=== PATIENT | female | born 1960 | race African-American/Black ===

== ENCOUNTER 2016-09-26 18:14 | Emergency (ER) | payer BC, MEDICAID ==
[~2016-09-26] VITALS: Ht 160 cm; Wt 77.1 kg
[2016-09-26] MEDS ORDERED: IV NORMAL SALINE 1000ML BAG 1,000 ML IV SCH (18:44)
[2016-09-26] MEDS ORDERED: FAMOTIDINE 20 MG/2 ML VIAL IVP ONE (18:45)
[2016-09-26] MEDS ORDERED: FENTANYL PF 100 MCG/2 ML VIAL. IV PRN (18:45)
[2016-09-26] MEDS ORDERED: ONDANSETRON PF 4 MG/2 ML VIAL. IV ONE (18:45)
[2016-09-26 19:02] LABS: BASO # 0.1 x10^3/uL (0.0-0.2); BASO % 1 % (0-3); EOS % 3 % (0-3); HEMATOCRIT 38.7 % (36.0-47.0); HEMOGLOBIN 12.5 g/dL (12.0-15.5); LYMPH # 2.1 x10^3/uL (1.0-4.8); LYMPH % 32 % (24-48); MEAN CORPUSCULAR HEMOGLOBIN 29 pg (25-35); MEAN CORPUSCULAR HGB CONC 32 g/dL (31-37); MEAN CORPUSCULAR VOLUME 91 fL (79-100); MONO % 6 % (0-9); NEUT % 58 % (31-73); PLATELET COUNT 224 x10^3/uL (140-400); RED BLOOD COUNT 4.25 x10^6/uL (3.50-5.40); RED CELL DISTRIBUTION WIDTH 14.1 % (11.5-14.5); WHITE BLOOD COUNT 6.7 x10^3/uL (4.0-11.0)
[2016-09-26 19:22] LABS: CALCIUM 9.9 mg/dL (8.5-10.1); CREATININE 0.5 mg/dL (0.6-1.0); GFR 155.6; POTASSIUM 4.4 mmol/L (3.5-5.1)
[2016-09-26 19:27] LABS: ALBUMIN 3.8 g/dL (3.4-5.0); TOTAL BILIRUBIN 0.5 mg/dL (0.2-1.0); TOTAL PROTEIN 7.7 g/dL (6.4-8.2)
[2016-09-26 20:01] LABS: CKMB MASS < 0.5 ng/mL (0.0-3.6); CREATINE KINASE 59 U/L (26-192)
[2016-09-26 20:03] LABS: BILIRUBIN,URINE NEGATIVE (NEG); GLUCOSE,URINE NEGATIVE (NEG); NITRITE,URINE NEGATIVE (NEG); PH,URINE 5.5; PROTEIN,URINE NEGATIVE (NEG-TRACE)
[2016-09-26 20:22] LABS: BACTERIA,URINE MODERATE /HPF (0-FEW); RBC,URINE 0 /HPF (0-2); SQUAMOUS EPITHELIAL CELL,UR MOD /LPF
[2016-09-26] MEDS ORDERED: ONDA4TAB10 SL (20:39)
[2016-09-26] MEDS ORDERED: NITR100C62 PO (20:39)
[2016-09-26] MEDS ORDERED: FAMO-63 PO (20:39)
--- NOTE | 2016-09-26 20:40 | PHYS DOC ---
Past Medical History Past Medical History: Constipation, CVA, Hypertension, Hypothyroid, Seizure, Other Additional Past Medical Histor: PARKINSON'S Past Surgical History: No Surgical History Alcohol Use: None Drug Use: None Adult General Chief Complaint Chief Complaint: SHORTNESS OF BREATH HPI HPI Patient is a 55 year old female who presents with complaint of upper abdominal pain. Patient states that she has been having trouble with abdominal pain for the past 6 months. Patient states over the past months she has been noticing intermittent shortness of breath when she gets the abdominal pain. Patient states her symptoms worsened over the past few days and the patient decided to come to the emergency department for evaluation. Patient states that she just recently moved from [place] within the last 2 weeks. Patient does not have a primary care physician at this time. The patient states that she has had previous workups and [place] for her abdominal pain but states that they have not been able to find an obvious cause for her symptoms. Denies any associated fevers, nausea, vomiting and patient states that the pain is currently 10 out of 10 and describes the pain as sharp. Patient denies radiation of pain. Patient has not taken any medications to help with her symptoms. Review of Systems Review of Systems Constitutional: Denies fever or chills [] Eyes: Denies change in visual acuity, redness, or eye pain [] HENT: Denies nasal congestion or sore throat [] Respiratory: Shortness breath [] Cardiovascular: Denies chest pain or edema [] GI: Abdominal pain, denies nausea, vomiting, bloody stools or diarrhea [] : Denies dysuria or hematuria [] Musculoskeletal: Denies back pain or joint pain [] Integument: Denies rash or skin lesions [] Neurologic: Denies headache, focal weakness or sensory changes [] Current Medications Current Medications Current Medications Medications (Trade) Dose Ordered Sig/Shana Start Time Stop Time Status Last Admin Dose Admin Famotidine (Pepcid) 20 mg 1X ONCE 09/26/16 18:45 09/26/16 18:53 DC 09/26/16 19:10 20 MG Fentanyl Citrate 50 mcg 50 mcg PRN Q15MIN PRN 09/26/16 18:45 09/27/16 18:44 09/26/16 19:13 50 MCG Ondansetron HCl (Zofran) 4 mg 1X ONCE 09/26/16 18:45 09/26/16 18:53 DC 09/26/16 19:09 4 MG Sodium Chloride (Iv Sodium Chloride 0.9% 1000ml Bag) 1,000 ml @ 1,000 mls/hr Q1H 09/26/16 18:44 09/26/16 19:43 DC 09/26/16 19:09 1,000 MLS/HR Allergies Allergies Allergies Coded Allergies Type Severity Reaction Last Updated Verified No Known Drug Allergies 09/26/16 No Physical Exam Physical Exam Constitutional: Alert, afebrile, appears in no acute distress. [] HENT: Normocephalic, atraumatic, bilateral external ears normal, oropharynx moist, no oral exudates, nose normal. [] Eyes: PERRLA, EOMI, conjunctiva normal, no discharge. [] Neck: Normal range of motion, no tenderness, supple, no stridor. [] Cardiovascular:Heart rate regular rhythm, no murmur [] Lungs & Thorax: Bilateral breath sounds clear to auscultation [] Abdomen: Bowel sounds normal, soft, epigastric tenderness to palpation, no guarding or rebound tenderness, no masses, no pulsatile masses. [] Skin: Warm, dry, no erythema, no rash. [] Back: No tenderness, no CVA tenderness. [] Extremities: No tenderness, no cyanosis, no clubbing, ROM intact, no edema. [] Neurologic: Alert and oriented X 3, normal motor function, normal sensory function, no focal deficits noted. [] Current Patient Data Vital Signs Vital Signs Date Time Temp Pulse Resp B/P Pulse Ox O2 Delivery O2 Flow Rate FiO2 09/26/16 20:28 55 161/85 94 09/26/16 19:23 22 Room Air 09/26/16 18:24 97.5 97.5 Lab Values Laboratory Tests Test 09/26/16 18:20 09/26/16 19:45 White Blood Count 6.7x10^3/uL (4.0-11.0) Red Blood Count 4.25x10^6/uL (3.50-5.40) Hemoglobin 12.5g/dL (12.0-15.5) Hematocrit 38.7% (36.0-47.0) Mean Corpuscular Volume 91fL (79-100) Mean Corpuscular Hemoglobin 29pg (25-35) Mean Corpuscular Hemoglobin Concent 32g/dL (31-37) Red Cell Distribution Width 14.1% (11.5-14.5) Platelet Count 224x10^3/uL (140-400) Neutrophils (%) (Auto) 58% (31-73) Lymphocytes (%) (Auto) 32% (24-48) Monocytes (%) (Auto) 6% (0-9) Eosinophils (%) (Auto) 3% (0-3) Basophils (%) (Auto) 1% (0-3) Neutrophils # (Auto) 3.9x10^3uL (1.8-7.7) Lymphocytes # (Auto) 2.1x10^3/uL (1.0-4.8) Monocytes # (Auto) 0.4x10^3/uL (0.0-1.1) Eosinophils # (Auto) 0.2x10^3/uL (0.0-0.7) Basophils # (Auto) 0.1x10^3/uL (0.0-0.2) Sodium Level 144mmol/L (136-145) Potassium Level 4.4mmol/L (3.5-5.1) Chloride Level 104mmol/L (98-107) Carbon Dioxide Level 29mmol/L (21-32) Anion Gap 11 (6-14) Blood Urea Nitrogen 9mg/dL (7-20) Creatinine 0.5mg/dL (0.6-1.0) L Estimated GFR (Cockcroft-Gault) 155.6 BUN/Creatinine Ratio 18 (6-20) Glucose Level 88mg/dL (70-99) Calcium Level 9.9mg/dL (8.5-10.1) Total Bilirubin 0.5mg/dL (0.2-1.0) Aspartate Amino Transferase (AST) 14U/L (15-37) L Alanine Aminotransferase (ALT) 8U/L (14-59) L Alkaline Phosphatase 82U/L (46-116) Creatine Kinase 59U/L (26-192) Creatine Kinase MB (Mass) < 0.5ng/mL (0.0-3.6) Creatine Kinase MB Relative Index % (0-4) Troponin I Quantitative < 0.017ng/mL (0.000-0.055) Total Protein 7.7g/dL (6.4-8.2) Albumin 3.8g/dL (3.4-5.0) Albumin/Globulin Ratio 1.0 (1.0-1.7) Lipase 109U/L (73-393) Urine Color Yellow Urine Clarity Cloudy Urine pH 5.5 Urine Specific [place] 1.015 Urine Protein Negativemg/dL (NEG-TRACE) Urine Glucose (UA) Negativemg/dL (NEG) Urine Ketones (Stick) Tracemg/dL (NEG) Urine Blood Negative (NEG) Urine Nitrite Negative (NEG) Urine Bilirubin Negative (NEG) Urine Urobilinogen Dipstick 1.0mg/dL (0.2 mg/dL) Urine Leukocyte Esterase Small (NEG) Urine RBC 0/HPF (0-2) Urine WBC 1-4/HPF (0-4) Urine Squamous Epithelial Cells Mod/LPF Urine Amorphous Sediment Present/HPF Urine Bacteria Moderate/HPF (0-FEW) Urine Mucus Marked/LPF Laboratory Tests 09/26/16 18:20 Laboratory Tests 09/26/16 18:20 EKG EKG Interpreted by me: Heart rate 71, sinus rhythm, leftward axis, normal intervals , no acute ST/T-wave abnormalities present [] Radiology/Procedures Radiology/Procedures 3 view acute abdominal series interpreted by me: No pulmonary infiltrates or effusions, nonobstructive bowel gas pattern, no free air under the diaphragm [] Course & Med Decision Making Course & Med Decision Making Pertinent Labs and Imaging studies reviewed. (See chart for details) Patient was given IV fluids, Zofran, Pepcid, and fentanyl. On reevaluation, patient states that her symptoms have improved at this time. Patient's lab and imaging do not reveal any remarkable findings except for an incidental finding of urinary tract infection, and do not show any evidence of an acute surgical process. The patient likely will need outpatient GI follow-up for further evaluation and possible EGD, however I recommended that the patient first establish primary care referral to [facility]. Advise follow-up in one week. The patient will be treated as outpatient with Zofran and Pepcid as well as Macrobid for treatment of urinary tract infection. Advised return emergency department for any worsening symptoms. Patient was understanding and in agreement with treatment plan. Dragon Disclaimer Dragon Disclaimer This electronic medical record was generated, in whole or in part, using a voice recognition dictation system. Departure Departure Impression: Primary Impression: Abdominal pain Additional Impression: UTI (urinary tract infection) Disposition: 09 ADMITTED INPATIENT Condition: STABLE Referrals: NO PCP (PCP) Patient Instructions: Abdominal Pain (Nonspecific), Urinary Tract Infection Additional Instructions: Follow-up with your primary doctor in 1 week. Return to the emergency department for any worsening symptoms. Scripts Ondansetron (Zofran Odt)4 Mg Tab.rapdis1 Tab SL Q8HRS PRN NAUSEA/VOMITING #15 TAB Prov:WILLIAM PONCE MD 09/26/16 Famotidine (Pepcid)20 Mg Fubhty75 Mg PO BID #30 TAB Prov:WILLIAM PONCE MD 09/26/16 Nitrofurantoin Monohyd/M-Cryst (Macrobid 100 Mg Capsule)100 Mg Capsule1 Cap PO BID #14 CAP Prov:WILLIAM PONCE MD 09/26/16 Problem Qualifiers Primary Impression: Abdominal pain Abdominal location: epigastric Qualified Code: R10.13 - Epigastric pain Additional Impression: UTI (urinary tract infection) Urinary tract infection type: site unspecified Hematuria presence: without hematuria Qualified Code: N39.0 - Urinary tract infection, site not specified WILLIAM PONCE MD Sep 26, 2016 20:39
[2016-09-26 20:43] VITALS: BP 175/82
--- NOTE | 2016-09-27 06:35 | EKG ---
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
--- NOTE | 2016-09-27 08:02 | RAD ---
Acute abdomen series with chest, 09/26/2016: History: Shortness of breath, abdominal pain There is a moderate amount of gas in large and small bowel in a nonspecific pattern. No free air is seen in the abdomen. There is no evidence of organomegaly. Small lower pelvic calcifications are probably phleboliths. The heart size and pulmonary vascularity are within normal limits. No pulmonary infiltrates are seen. There is no evidence of pleural fluid. IMPRESSION: No acute abdominal abnormality is detected.
== END 2016-09-26 20:55 | disposition home or self-care (01) ==
LOC: ER 18:14
DX: R10.816 Epigastric abdominal tenderness (principal); N39.0 Urinary tract infection, site not specified; I10 Essential (primary) hypertension; E03.9 Hypothyroidism, unspecified; G20 Parkinson's disease; Z86.73 Personal history of transient ischemic attack (TIA), and cerebral infarction without residual deficits
CPT/HCPCS: 36415; 74022; 80053; 81001; 82553; 83690; 84484; 85027; 87086; 93005; 96361; 96374; 96375; 99285; J2405; J3010; J7030; S0028

== ENCOUNTER 2017-04-06 21:47 | Inpatient (IN) | payer BC, MEDICAID ==
[~2017-04-06] VITALS: Ht 165.1 cm; Wt 68.9 kg
[~2017-04-06 21:47] MED LIST: FAMO-63 PO; NITR100C62 PO; ONDA4TAB10 SL
[2017-04-06] MEDS: IV NORMAL SALINE 1000ML BAG 1,000 ML IV SCH ×2 (22:22→23:17)
[2017-04-06 22:29] LABS: BASO # 0.1 x10^3/uL (0.0-0.2); BASO % 1 % (0-3); EOS % 0 % (0-3); HEMATOCRIT 39.1 % (36.0-47.0); HEMOGLOBIN 12.6 g/dL (12.0-15.5); LYMPH # 1.2 x10^3/uL (1.0-4.8); LYMPH % 9 % (24-48); MEAN CORPUSCULAR HEMOGLOBIN 29 pg (25-35); MEAN CORPUSCULAR HGB CONC 32 g/dL (31-37); MEAN CORPUSCULAR VOLUME 90 fL (79-100); MONO % 13 % (0-9); NEUT % 77 % (31-73); PLATELET COUNT 232 x10^3/uL (140-400); RED BLOOD COUNT 4.34 x10^6/uL (3.50-5.40); RED CELL DISTRIBUTION WIDTH 13.7 % (11.5-14.5); WHITE BLOOD COUNT 14.4 x10^3/uL (4.0-11.0)
[2017-04-06] MEDS ORDERED: PIPERACILLIN/TAZOBACTAM 4.5 GM in IV NORMAL SALINE 100ML 100 ML IV ONE (22:30)
[2017-04-06 22:34] LABS: BILIRUBIN,URINE SMALL (NEG); GLUCOSE,URINE NEGATIVE (NEG); NITRITE,URINE NEGATIVE (NEG); PROTEIN,URINE >=300 mg/dL (NEG-TRACE)
[2017-04-06 22:37] LABS: INR 1.3 (0.8-1.1)
[2017-04-06 22:40] LABS: CALCIUM 9.8 mg/dL (8.5-10.1); CREATININE 0.9 mg/dL (0.6-1.0); GFR 78.7; POTASSIUM 4.7 mmol/L (3.5-5.1)
[2017-04-06 22:41] LABS: BACTERIA,URINE MANY /HPF (0-FEW); WBC,URINE 20-40 /HPF (0-4)
[2017-04-06 22:46] LABS: ALBUMIN 3.3 g/dL (3.4-5.0); ALBUMIN/GLOBULIN RATIO 0.8 (1.0-1.7); TOTAL BILIRUBIN 0.6 mg/dL (0.2-1.0); TOTAL PROTEIN 7.7 g/dL (6.4-8.2)
[2017-04-06] MEDS ORDERED: ACETAMINOPHEN 500 MG TABLET PO ONE (23:30)
--- NOTE | 2017-04-06 23:41 | PHYS DOC ---
Past Medical History Past Medical History: Constipation, CVA, Hypertension, Hypothyroid, Seizure, Other Additional Past Medical Histor: PARKINSON'S Past Surgical History: No Surgical History Alcohol Use: None Drug Use: None Adult General Chief Complaint Chief Complaint: ALTERED MENTAL STATUS HPI HPI Patient is a 56 year old female who presents with altered mental status. She is at [facility]. She has Parkinson and is incontinence. Nursing notes she has been less verbal for a few days. She is awake but non verbal. No trauma or fall. Review of Systems Review of Systems UNABLE TO OBTAIN -PATIENT IS NON VERBAL Current Medications Current Medications Current Medications Medications (Trade) Dose Ordered Sig/Shana Start Time Stop Time Status Last Admin Dose Admin Acetaminophen (Tylenol) 500 mg 1X ONCE 04/06/17 23:30 04/06/17 23:31 DC 04/06/17 23:40 500 MG Levofloxacin/ Dextrose 150 ml @ 100 mls/hr 1X ONCE 04/06/17 23:00 04/07/17 00:29 DC 04/06/17 23:41 100 MLS/HR Ondansetron HCl (Zofran) 4 mg PRN Q8HRS PRN 04/06/17 23:45 04/07/17 23:44 Piperacillin Sod/ Tazobactam Sod 4.5 gm/Sodium Chloride 100 ml @ 200 mls/hr 1X ONCE 04/06/17 22:30 04/06/17 22:59 DC 04/06/17 22:21 200 MLS/HR Sodium Chloride 1,000 ml @ 150 mls/hr 1X ONCE 04/07/17 00:00 04/07/17 06:39 04/07/17 00:00 150 MLS/HR Allergies Allergies Allergies Coded Allergies Type Severity Reaction Last Updated Verified No Known Drug Allergies 09/26/16 No Physical Exam Physical Exam Constitutional: Well developed, well nourished, no acute distress HENT: Normocephalic, atraumatic, bilateral external ears normal, oropharynx moist, no oral exudates, nose normal. Eyes: PERRLA, EOMI, conjunctiva normal, no discharge. Neck: Normal range of motion, no tenderness, supple, no stridor. Cardiovascular:Heart rate regular rhythm, no murmur Lungs & Thorax: Bilateral breath sounds clear to auscultation Abdomen: Bowel sounds normal, soft, no tenderness, no masses, no pulsatile masses. Skin: Warm, dry, no erythema, no rash. Extremities: No tenderness, no cyanosis, no clubbing, ROM intact, no edema. Neurologic: Alert, responds to voice; non verbal; moves all extremities. Current Patient Data Vital Signs Vital Signs Date Time Temp Pulse Resp B/P (MAP) Pulse Ox O2 Delivery O2 Flow Rate FiO2 04/07/17 00:00 90 32 128/70 (89) 100 Room Air 04/06/17 21:50 99.7 99.7 Lab Values Laboratory Tests Test 04/06/17 22:09 White Blood Count 14.4 x10^3/uL (4.0-11.0) H Red Blood Count 4.34 x10^6/uL (3.50-5.40) Hemoglobin 12.6 g/dL (12.0-15.5) Hematocrit 39.1 % (36.0-47.0) Mean Corpuscular Volume 90 fL (79-100) Mean Corpuscular Hemoglobin 29 pg (25-35) Mean Corpuscular Hemoglobin Concent 32 g/dL (31-37) Red Cell Distribution Width 13.7 % (11.5-14.5) Platelet Count 232 x10^3/uL (140-400) Neutrophils (%) (Auto) 77 % (31-73) H Lymphocytes (%) (Auto) 9 % (24-48) L Monocytes (%) (Auto) 13 % (0-9) H Eosinophils (%) (Auto) 0 % (0-3) Basophils (%) (Auto) 1 % (0-3) Neutrophils # (Auto) 11.1 x10^3uL (1.8-7.7) H Lymphocytes # (Auto) 1.2 x10^3/uL (1.0-4.8) Monocytes # (Auto) 1.9 x10^3/uL (0.0-1.1) H Eosinophils # (Auto) 0.0 x10^3/uL (0.0-0.7) Basophils # (Auto) 0.1 x10^3/uL (0.0-0.2) Prothrombin Time 15.0 SEC (11.7-14.0) H Prothrombin Time INR 1.3 (0.8-1.1) H PTT 35 SEC (24-38) Urine Collection Type Unknown Urine Color Carolyn Urine Clarity Cloudy Urine pH 8.0 Urine Specific [place] 1.015 Urine Protein >=300 mg/dL (NEG-TRACE) Urine Glucose (UA) Negative mg/dL (NEG) Urine Ketones (Stick) Trace mg/dL (NEG) Urine Blood Negative (NEG) Urine Nitrite Negative (NEG) Urine Bilirubin Small (NEG) Urine Urobilinogen Dipstick 1.0 mg/dL (0.2 mg/dL) Urine Leukocyte Esterase Moderate (NEG) Urine RBC 1-2 /HPF (0-2) Urine WBC 20-40 /HPF (0-4) Urine Squamous Epithelial Cells None /LPF Urine Amorphous Sediment Present /HPF Urine Bacteria Many /HPF (0-FEW) Urine Granular Casts Few /HPF Urine Mucus Slight /LPF Sodium Level 139 mmol/L (136-145) Potassium Level 4.7 mmol/L (3.5-5.1) Chloride Level 99 mmol/L (98-107) Carbon Dioxide Level 29 mmol/L (21-32) Anion Gap 11 (6-14) Blood Urea Nitrogen 44 mg/dL (7-20) H Creatinine 0.9 mg/dL (0.6-1.0) Estimated GFR (Cockcroft-Gault) 78.7 BUN/Creatinine Ratio 49 (6-20) H Glucose Level 130 mg/dL (70-99) H Lactic Acid Level 1.2 mmol/L (0.4-2.0) Calcium Level 9.8 mg/dL (8.5-10.1) Total Bilirubin 0.6 mg/dL (0.2-1.0) Aspartate Amino Transferase (AST) 14 U/L (15-37) L Alanine Aminotransferase (ALT) 12 U/L (14-59) L Alkaline Phosphatase 88 U/L (46-116) Troponin I Quantitative < 0.017 ng/mL (0.000-0.055) Total Protein 7.7 g/dL (6.4-8.2) Albumin 3.3 g/dL (3.4-5.0) L Albumin/Globulin Ratio 0.8 (1.0-1.7) L Lipase 72 U/L (73-393) L Laboratory Tests 04/06/17 22:09 Laboratory Tests 04/06/17 22:09 EKG EKG EKG interpreted by myself at 2235 PM: NSR, rate 95, nonsp ST changes. Radiology/Procedures Radiology/Procedures CXR: interpreted by myself at 2330 PM: no acute infiltrate; elev right hemidiaphragm Course & Med Decision Making Course & Med Decision Making Met patient upon arrival. concerned about sepsis. She is incontinent and has parkinsons. She is responsive but non verbal. Proceeded with work up; placed a foote and started IV fluid bolus. Foote placed with >1500 cc of urine output. Levaquin dosed. At 2330 PM she is speaking now and more alert. At 2335 PM: BP 125/80, P 90 at sat 98% post fluid resuscitation. Daughter at bedside and updated. Meets SIRS criteria of HR >104 (on arrival); WBC >12 and source of infection Urine. On [facility] record, followed by Dr Flash Richardson; called at 2340 PM for admission I spent approximately [30 minutes working and engaged directly in the patient care providing critical care evaluation this includes but not limited to time spent engaged in work directly related to the individual patients care. I spent time at the bedside, reviewing test results, discussing the case with staff, documenting the medical record and time spent with EMS discussing specific treatment issues when the patient presented and during his evaluation. This includes any discussion and updates with family members and/or patient. I have spoken with the patient and/or caregivers. I have explained the patient' s condition, diagnosis and treatment plan based on the information available to me at this time. I have answered the patient's and/or caregiver's questions and addressed any concerns. The patient and/or caregivers have as good an understanding of the patient's diagnosis, condition and treatment plan as can be expected at this point. The patient has been stabilized within the capability of the emergency department. The patient will be transported for further care and management or will be moved to an observation or inpatient service. I have communicated with the staff or medical practitioner taking over this patient's care. Dragon Disclaimer Dragon Disclaimer This electronic medical record was generated, in whole or in part, using a voice recognition dictation system. Departure Departure Impression: Primary Impression: UTI (urinary tract infection) Additional Impressions: SIRS (systemic inflammatory response syndrome) Urinary retention Disposition: ADMITTED INPATIENT Admitting Physician: Flash Richardson Condition: STABLE Referrals: NO PCP (PCP) Problem Qualifiers Primary Impression: UTI (urinary tract infection) Urinary tract infection type: acute cystitis Hematuria presence: without hematuria Qualified Codes: N30.00 - Acute cystitis without hematuria MOO LION MD Apr 06, 2017 23:40
[2017-04-06] MEDS ORDERED: ONDANSETRON PF 4 MG/2 ML VIAL. IV PRN (23:45)
[2017-04-07] VITALS (7 sets, daily range): BP systolic 95–111; BP diastolic 52–76
[2017-04-07] MEDS ORDERED: IV NORMAL SALINE 1000ML BAG 1,000 ML IV ONE
[2017-04-07] MEDS ORDERED: SULF1TAB24 PO (01:50)
[2017-04-07] MEDS ORDERED: LUBI8CAP4 PO (01:50)
[2017-04-07] MEDS ORDERED: ACET325T9 PO (01:50)
[2017-04-07] MEDS ORDERED: ASPI-630 PO (01:50)
[2017-04-07] MEDS ORDERED: AMLO5TAB2 PO (01:50)
[2017-04-07] MEDS ORDERED: ATRO10DR SL (01:50)
[2017-04-07] MEDS ORDERED: PROP10TA PO (02:00)
[2017-04-07] MEDS ORDERED: LEVO75TA5 PO (02:00)
[2017-04-07] MEDS ORDERED: NAPR-695 PO (02:00)
[2017-04-07] MEDS ORDERED: CARB1TAB2 PO (02:00)
[2017-04-07] MEDS ORDERED: PRAM0.255 PO (02:00)
[2017-04-07] MEDS ORDERED: DULO60CA6 PO (02:00)
[2017-04-07] MEDS ORDERED: MAG360OR24 PO (02:00)
[2017-04-07] MEDS ORDERED: TRAZ50TA15 PO (02:00)
[2017-04-07] MEDS ORDERED: FERR-26 PO (02:00)
[2017-04-07] MEDS ORDERED: METH5TAB4 PO (02:00)
[2017-04-07] MEDS ORDERED: LEVE500T6 PO (02:00)
[2017-04-07] MEDS ORDERED: LORA10TA68 PO (02:00)
[2017-04-07] MEDS ORDERED: ONDA4TAB11 PO (02:00)
[2017-04-07] MEDS ORDERED: FLUC200T4 PO (02:05)
--- NOTE | 2017-04-07 08:10 | RAD ---
Portable chest, 04/06/2017: History: Altered mental status Comparison is made to a study from 09/26/2016. The heart size and pulmonary vascularity are normal. No pulmonary infiltrates are seen. There is no evidence of pleural fluid. There is increased stool in the visible loops of colon in the upper abdomen. IMPRESSION: No acute cardiopulmonary abnormality is detected.
--- NOTE | 2017-04-07 08:27 | EKG ---
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
--- NOTE | 2017-04-07 08:43 | PDOC ---
GENERAL General: see dictated H&P. Problems: VITAL SIGNS Vital Signs: Vital Signs Date Time Temp Pulse Resp B/P (MAP) Pulse Ox O2 Delivery O2 Flow Rate FiO2 04/07/17 03:53 98.0 80 18 107/73 (84) 95 98.0 04/07/17 01:15 Room Air ALLERGIES Allergies: Allergies Coded Allergies Type Severity Reaction Last Updated Verified No Known Drug Allergies 09/26/16 No MEDS Medications: Current Medications Medications (Trade) Dose Ordered Sig/Shana Start Time Stop Time Status Last Admin Dose Admin Acetaminophen (Tylenol) 500 mg 1X ONCE 04/06/17 23:30 04/06/17 23:31 DC 04/06/17 23:40 500 MG Levofloxacin/ Dextrose 150 ml @ 100 mls/hr QHS 04/07/17 21:00 Ondansetron HCl (Zofran) 4 mg PRN Q8HRS PRN 04/06/17 23:45 04/07/17 23:44 Piperacillin Sod/ Tazobactam Sod 4.5 gm/Sodium Chloride 100 ml @ 200 mls/hr 1X ONCE 04/06/17 22:30 04/06/17 22:59 DC 04/06/17 22:21 200 MLS/HR Sodium Chloride 1,000 ml @ 150 mls/hr 1X ONCE 04/07/17 00:00 04/07/17 06:39 DC 04/07/17 00:00 150 MLS/HR LAB Lab: Laboratory Tests Test 04/06/17 22:09 White Blood Count 14.4 x10^3/uL (4.0-11.0) Red Blood Count 4.34 x10^6/uL (3.50-5.40) Hemoglobin 12.6 g/dL (12.0-15.5) Hematocrit 39.1 % (36.0-47.0) Mean Corpuscular Volume 90 fL (79-100) Mean Corpuscular Hemoglobin 29 pg (25-35) Mean Corpuscular Hemoglobin Concent 32 g/dL (31-37) Red Cell Distribution Width 13.7 % (11.5-14.5) Platelet Count 232 x10^3/uL (140-400) Neutrophils (%) (Auto) 77 % (31-73) Lymphocytes (%) (Auto) 9 % (24-48) Monocytes (%) (Auto) 13 % (0-9) Eosinophils (%) (Auto) 0 % (0-3) Basophils (%) (Auto) 1 % (0-3) Neutrophils # (Auto) 11.1 x10^3uL (1.8-7.7) Lymphocytes # (Auto) 1.2 x10^3/uL (1.0-4.8) Monocytes # (Auto) 1.9 x10^3/uL (0.0-1.1) Eosinophils # (Auto) 0.0 x10^3/uL (0.0-0.7) Basophils # (Auto) 0.1 x10^3/uL (0.0-0.2) Prothrombin Time 15.0 SEC (11.7-14.0) Prothromb Time International Ratio 1.3 (0.8-1.1) Activated Partial Thromboplast Time 35 SEC (24-38) Urine Collection Type Unknown Urine Color Carolyn Urine Clarity Cloudy Urine pH 8.0 Urine Specific [place] 1.015 Urine Protein >=300 mg/dL (NEG-TRACE) Urine Glucose (UA) Negative mg/dL (NEG) Urine Ketones (Stick) Trace mg/dL (NEG) Urine Blood Negative (NEG) Urine Nitrite Negative (NEG) Urine Bilirubin Small (NEG) Urine Urobilinogen Dipstick 1.0 mg/dL (0.2 mg/dL) Urine Leukocyte Esterase Moderate (NEG) Urine RBC 1-2 /HPF (0-2) Urine WBC 20-40 /HPF (0-4) Urine Squamous Epithelial Cells None /LPF Urine Amorphous Sediment Present /HPF Urine Bacteria Many /HPF (0-FEW) Urine Granular Casts Few /HPF Urine Mucus Slight /LPF Sodium Level 139 mmol/L (136-145) Potassium Level 4.7 mmol/L (3.5-5.1) Chloride Level 99 mmol/L (98-107) Carbon Dioxide Level 29 mmol/L (21-32) Anion Gap 11 (6-14) Blood Urea Nitrogen 44 mg/dL (7-20) Creatinine 0.9 mg/dL (0.6-1.0) Estimated GFR (Cockcroft-Gault) 78.7 BUN/Creatinine Ratio 49 (6-20) Glucose Level 130 mg/dL (70-99) Lactic Acid Level 1.2 mmol/L (0.4-2.0) Calcium Level 9.8 mg/dL (8.5-10.1) Total Bilirubin 0.6 mg/dL (0.2-1.0) Aspartate Amino Transf (AST/SGOT) 14 U/L (15-37) Alanine Aminotransferase (ALT/SGPT) 12 U/L (14-59) Alkaline Phosphatase 88 U/L (46-116) Troponin I Quantitative < 0.017 ng/mL (0.000-0.055) Total Protein 7.7 g/dL (6.4-8.2) Albumin 3.3 g/dL (3.4-5.0) Albumin/Globulin Ratio 0.8 (1.0-1.7) Lipase 72 U/L (73-393) PAUL ROCHA MD Apr 07, 2017 08:43
[2017-04-07] MEDS ORDERED: ACETAMINOPHEN 325 MG TABLET. PO PRN (08:45)
[2017-04-07] MEDS: amLODIPine BESYLATE 5 MG TABLET PO SCH (09:00)
[2017-04-07] MEDS ORDERED: MAG HYDROX/ALUMINUM HYD/SIMETH 30 ML ORAL.SUSP PO PRN (09:15)
[2017-04-07] MEDS ORDERED: ATROPINE 1% OPHTH SOLUTION 5ML BOTTLE. SL PRN (09:30)
[2017-04-07] MEDS ORDERED: ONDANSETRON ODT 4 MG TAB.RAPDIS. PO PRN (09:30)
[2017-04-07] MEDS: IV NORMAL SALINE 1000ML BAG 1,000 ML IV SCH (09:40)
[2017-04-07] MEDS: LUBIPROSTONE 8 MCG CAPSULE PO SCH (11:49)
[2017-04-07] MEDS: PRAMIPEXOLE 0.25 MG TABLET. PO SCH ×2 (11:49→21:00)
[2017-04-07] MEDS: LEVOTHYROXINE 75 MCG TABLET PO SCH (11:51)
[2017-04-07] MEDS: NAPROXEN 250 MG TABLET PO SCH ×2 (11:51→12:51)
[2017-04-07] MEDS: METHYLPHENIDATE HCL 5 MG TABLET PO SCH ×2 (11:51→21:00)
[2017-04-07] MEDS: CARBIDOPA/LEVODOPA 25/100MG TABLET PO SCH ×3 (11:52→21:00)
[2017-04-07] MEDS: SMZ/TMP 800/160MG TABLET. PO SCH ×2 (11:52→21:00)
[2017-04-07] MEDS: levETIRAcetam 500 MG TABLET PO SCH ×2 (11:52→21:00)
[2017-04-07] MEDS: CETIRIZINE HCL 10 MG TABLET. PO SCH (11:53)
[2017-04-07] MEDS: ASPIRIN CHEWABLE 81 MG TABLET. PO SCH (11:53)
[2017-04-07] MEDS: FERROUS SULFATE 325 MG TABLET. PO SCH ×2 (11:53→21:00)
[2017-04-07] MEDS: PROPRANOLOL 10 MG TABLET. PO SCH (11:55)
[2017-04-07] MEDS: DULoxetine HCL 30 MG CAPSULE.DR PO SCH (11:57)
[2017-04-07] MEDS: traZODone 50 MG TABLET. PO SCH (11:57)
--- NOTE | 2017-04-07 20:01 | RAD ---
KUB History: NG tube placement Comparison: September 26, 2016 Findings: Single supine AP portable view of the abdomen is submitted. Tip of enteric catheter is coiled in the cardiac portion of stomach, tip apparently in the stomach although directed back toward the gastroesophageal junction. Exam is insufficient for evaluation for free air. There is fairly prominent retained stool throughout the colon. Impression: 1. Tip of enteric catheter is in the cardiac portion of the stomach although directed back toward the gastroesophageal junction. 2. There is prominent retained stool throughout the colon. Electronically signed by: Flash Hicks MD (04/07/2017 7:57 PM) [facility]
[2017-04-07] MEDS: IV 1/2 NORMAL SALINE 1,000 ML IV SCH (22:50)
--- NOTE | 2017-04-07 23:12 | RAD ---
KUB History: Repositioned [place] Comparison: Exam earlier the same day Findings: Single supine AP view of the abdomen is submitted. Tip of the anterior catheter is now directed inferiorly likely in the body of stomach. There is retained stool throughout colon. Exam is insufficient for the evaluation for free air. Impression: 1. Tip of enteric catheter is now directed inferiorly, likely in the body of stomach. Electronically signed by: Flash Hicks MD (04/07/2017 11:09 PM) [facility]
[2017-04-08] VITALS (7 sets, daily range): BP systolic 71–99; BP diastolic 38–61
[2017-04-08] MEDS: SMZ/TMP 800/160MG TABLET. PO SCH ×2 (08:48→21:05)
[2017-04-08] MEDS: CARBIDOPA/LEVODOPA 25/100MG TABLET PO SCH ×3 (08:48→21:04)
[2017-04-08] MEDS: NAPROXEN 250 MG TABLET PO SCH ×2 (08:49→21:04)
[2017-04-08] MEDS: LEVOTHYROXINE 75 MCG TABLET PO SCH (08:49)
[2017-04-08] MEDS: DULoxetine HCL 30 MG CAPSULE.DR PO SCH (08:49)
[2017-04-08] MEDS: levETIRAcetam 500 MG TABLET PO SCH (08:49)
[2017-04-08] MEDS: PROPRANOLOL 10 MG TABLET. PO SCH ×2 (08:50→08:53)
[2017-04-08] MEDS: FERROUS SULFATE 325 MG TABLET. PO SCH (08:50)
[2017-04-08] MEDS: PRAMIPEXOLE 0.25 MG TABLET. PO SCH ×2 (08:51→21:05)
[2017-04-08] MEDS: amLODIPine BESYLATE 5 MG TABLET PO SCH ×2 (08:51→08:53)
[2017-04-08] MEDS: ASPIRIN CHEWABLE 81 MG TABLET. PO SCH (08:51)
[2017-04-08] MEDS: METHYLPHENIDATE HCL 5 MG TABLET PO SCH ×2 (08:51→21:04)
[2017-04-08] MEDS: traZODone 50 MG TABLET. PO SCH ×2 (08:51→21:05)
[2017-04-08] MEDS: CETIRIZINE HCL 10 MG TABLET. PO SCH (08:51)
--- NOTE | 2017-04-08 09:01 | PDOC ---
GENERAL General: vss and afebrile. much more awake and alert. exam stable. dysphagia yesterday with swallow eval and dobhoff in currently. will recheck swallow today with improvement overall from uti. otherwise same. Problems: VITAL SIGNS Vital Signs: Vital Signs Date Time Temp Pulse Resp B/P (MAP) Pulse Ox O2 Delivery O2 Flow Rate FiO2 04/08/17 08:53 87 93/51 04/08/17 07:15 98.2 16 100 Room Air 98.2 ALLERGIES Allergies: Allergies Coded Allergies Type Severity Reaction Last Updated Verified No Known Drug Allergies 09/26/16 No MEDS Medications: Current Medications Medications (Trade) Dose Ordered Sig/Shana Start Time Stop Time Status Last Admin Dose Admin Acetaminophen (Tylenol) 650 mg PRN Q4HRS PRN 04/07/17 08:45 Al Hydroxide/Mg Hydroxide (Mylanta Plus Xs) 10 ml PRN Q4HRS PRN 04/07/17 09:15 Amlodipine Besylate (Norvasc) 5 mg DAILY 04/07/17 09:00 Aspirin (Children'S Aspirin) 81 mg DAILY 04/07/17 09:00 04/08/17 08:51 81 MG Atropine Sulfate (Isopto Atropine) 1 drop PRN Q8HRS PRN 04/07/17 09:30 Carbidopa/Levodopa (Sinemet 25/100) 2 tab TID 04/07/17 09:00 04/08/17 08:48 2 TAB Cetirizine HCl (ZyrTEC) 10 mg DAILY 04/07/17 10:00 04/08/17 08:51 10 MG Duloxetine HCl (Cymbalta) 60 mg DAILY 04/07/17 10:00 04/08/17 08:49 60 MG Ferrous Sulfate (Feosol) 325 mg BID 04/07/17 09:00 04/08/17 08:50 325 MG Levetiracetam (Keppra) 1,000 mg BID 04/07/17 09:00 04/08/17 08:49 1,000 MG Levofloxacin/ Dextrose 150 ml @ 100 mls/hr QHS 04/07/17 21:00 04/07/17 22:51 100 MLS/HR Levothyroxine Sodium (Synthroid) 75 mcg DAILY 04/07/17 09:00 04/08/17 08:49 75 MCG Lubiprostone (Amitiza) 8 mcg Q3DAYS 04/07/17 09:00 04/07/17 11:49 8 MCG Methylphenidate HCl (Ritalin) 5 mg BID 04/07/17 09:00 04/08/17 08:51 5 MG Naproxen (Naprosyn) 375 mg BID 04/07/17 09:15 04/08/17 08:49 375 MG Ondansetron HCl (Zofran Odt) 4 mg PRN Q8HRS PRN 04/07/17 09:30 Ondansetron HCl (Zofran) 4 mg PRN Q8HRS PRN 04/06/17 23:45 04/07/17 23:44 DC Piperacillin Sod/ Tazobactam Sod 4.5 gm/Sodium Chloride 100 ml @ 200 mls/hr 1X ONCE 04/06/17 22:30 04/06/17 22:59 DC 04/06/17 22:21 200 MLS/HR Pramipexole Dihydrochloride (miraPEX) 0.125 mg BID 04/07/17 09:00 04/08/17 08:51 0.125 MG Propranolol HCl (Inderal) 10 mg DAILY 04/07/17 09:00 04/07/17 11:55 10 MG Sodium Chloride 1,000 ml @ 100 mls/hr Q10H 04/07/17 21:30 04/07/17 22:50 100 MLS/HR Trazodone HCl (Desyrel) 50 mg DAILY 04/07/17 09:00 04/07/17 11:57 50 MG Trimethoprim/ Sulfamethoxazole (Bactrim Ds) 1 tab BID 04/07/17 09:00 04/08/17 08:48 1 TAB PAUL ROCHA MD Apr 08, 2017 09:01
--- NOTE | 2017-04-08 09:08 | HP ---
ADMIT DATE: 04/07/2017 CHIEF COMPLAINT AND HISTORY CHIEF COMPLAINT AND HISTORY OF PRESENT ILLNESS: This 56-year-old black female was sent to the Emergency Room from [facility] because of altered mental status. The patient was known to have Parkinson's, prior CVA and incontinence. She had been much less verbal over the last few days and was sent to the Emergency Room. She was found to have UTI and admitted for the same. PAST MEDICAL HISTORY: Remarkable for hypertension, CVA, constipation, severe hypothyroid, Parkinson's. PAST SURGICAL HISTORY: She has no significant surgical history. SOCIAL HISTORY: Nonsmoker, nondrinker, does not use drugs. FAMILY HISTORY: Noncontributory. MEDICATIONS: Brought with the patient, listed on the computer and have been addressed. ALLERGIES: She has no known drug allergies. REVIEW OF SYSTEMS: Unobtainable as far as verbally as she will not speak to me, but will answer yes or no questions and with yes and no tells me that she is not in severe pain and feels better than she did at the time of admission. PHYSICAL EXAMINATION: GENERAL: She is a well-developed, well-nourished, somewhat obese black female, in no acute distress. HEAD, EYES, EARS, NOSE AND THROAT: Unremarkable. NECK: Supple, without adenopathy or thyromegaly. CHEST: Clear to auscultation and percussion. HEART: Regular rate and rhythm without S3, S4 or murmur. ABDOMEN: Soft, nontender, without hepatosplenomegaly or masses. EXTREMITIES: Without cyanosis, clubbing or edema. NEUROLOGIC: Remarkable for ____ being nonverbal, but moves all four extremities. She has no CVA tenderness present on exam. LABORATORY DATA: Initial laboratory is remarkable for leukocytosis with white count of 14,400. Her BUN is elevated at 44 ____ creatinine of 0.9 and blood sugar was 130. IMPRESSION: Urinary tract infection with decreased level of consciousness. She was also found to have urinary retention in the Emergency Room and a catheter was placed ____ listed above. PLAN: The patient is admitted. She will be continued on Levaquin. Urine is being cultured. Home medications will be restarted and the patient will be monitored, managed and treated appropriately. PAUL ROCHA MD DR: Leandro JOB#: [id number] / [id number]
[2017-04-08] MEDS: IV 1/2 NORMAL SALINE 1,000 ML IV SCH ×2 (13:04→21:09)
[2017-04-08] MEDS: FERROUS SULFATE ORAL 300 MG/5 ML SOLUTION. PO SCH (17:57)
[2017-04-09] VITALS (7 sets, daily range): BP systolic 81–102; BP diastolic 49–65
[2017-04-09] MEDS: IV 1/2 NORMAL SALINE 1,000 ML IV SCH ×3 (03:30→23:30)
--- NOTE | 2017-04-09 08:09 | PDOC ---
GENERAL General: vss and afebrile. awake and alert. dobhoff in place. chest clear, heart regular , and abdomen benign. gram negative rods without ID on urine culture. failed swallow test again yesterday. will see how does with same today with consideration of PEG tomorrow if fails. expect her to return to baseline with treatment of uti. Problems: VITAL SIGNS Vital Signs: Vital Signs Date Time Temp Pulse Resp B/P (MAP) Pulse Ox O2 Delivery O2 Flow Rate FiO2 04/09/17 07:00 98.7 80 18 97/61 (73) 99 Room Air 98.7 ALLERGIES Allergies: Allergies Coded Allergies Type Severity Reaction Last Updated Verified No Known Drug Allergies 09/26/16 No MEDS Medications: Current Medications Medications (Trade) Dose Ordered Sig/Shana Start Time Stop Time Status Last Admin Dose Admin Acetaminophen (Tylenol) 650 mg PRN Q4HRS PRN 04/07/17 08:45 04/08/17 17:57 650 MG Al Hydroxide/Mg Hydroxide (Mylanta Plus Xs) 10 ml PRN Q4HRS PRN 04/07/17 09:15 Amlodipine Besylate (Norvasc) 5 mg DAILY 04/07/17 09:00 Aspirin (Children'S Aspirin) 81 mg DAILY 04/07/17 09:00 04/08/17 08:51 81 MG Atropine Sulfate (Isopto Atropine) 1 drop PRN Q8HRS PRN 04/07/17 09:30 Carbidopa/Levodopa (Sinemet 25/100) 2 tab TID 04/07/17 09:00 04/08/17 21:04 2 TAB Cetirizine HCl (ZyrTEC) 10 mg DAILY 04/07/17 10:00 04/08/17 08:51 10 MG Duloxetine HCl (Cymbalta) 60 mg DAILY 04/07/17 10:00 04/08/17 08:49 60 MG Ferrous Sulfate 300 mg BIDWMEALS 04/08/17 17:00 04/08/17 17:57 300 MG Ferrous Sulfate (Feosol) 325 mg BID 04/07/17 09:00 04/08/17 09:48 DC 04/08/17 08:50 325 MG Levetiracetam (Keppra) 1,000 mg BID 04/08/17 21:00 04/08/17 21:04 1,000 MG Levofloxacin/ Dextrose 150 ml @ 100 mls/hr QHS 04/07/17 21:00 04/08/17 21:05 100 MLS/HR Levothyroxine Sodium (Synthroid) 75 mcg DAILY 04/07/17 09:00 04/08/17 08:49 75 MCG Lubiprostone (Amitiza) 8 mcg Q3DAYS 04/07/17 09:00 04/07/17 11:49 8 MCG Methylphenidate HCl (Ritalin) 5 mg BID 04/07/17 09:00 04/08/17 21:04 5 MG Naproxen (Naprosyn) 375 mg BID 04/07/17 09:15 04/08/17 21:04 375 MG Ondansetron HCl (Zofran Odt) 4 mg PRN Q8HRS PRN 04/07/17 09:30 Ondansetron HCl (Zofran) 4 mg PRN Q8HRS PRN 04/06/17 23:45 04/07/17 23:44 DC Piperacillin Sod/ Tazobactam Sod 4.5 gm/Sodium Chloride 100 ml @ 200 mls/hr 1X ONCE 04/06/17 22:30 04/06/17 22:59 DC 04/06/17 22:21 200 MLS/HR Pramipexole Dihydrochloride (miraPEX) 0.125 mg BID 04/07/17 09:00 04/08/17 21:05 0.125 MG Propranolol HCl (Inderal) 10 mg DAILY 04/07/17 09:00 04/07/17 11:55 10 MG Sodium Chloride 1,000 ml @ 100 mls/hr Q10H 04/07/17 21:30 04/09/17 03:30 100 MLS/HR Trazodone HCl (Desyrel) 50 mg QHS 04/08/17 21:00 04/08/17 21:05 50 MG Trimethoprim/ Sulfamethoxazole (Bactrim Ds) 1 tab BID 04/07/17 09:00 04/08/17 21:05 1 TAB PAUL ROCHA MD Apr 09, 2017 08:09
[2017-04-09] MEDS: amLODIPine BESYLATE 5 MG TABLET PO SCH (08:24)
[2017-04-09] MEDS: DULoxetine HCL 30 MG CAPSULE.DR PO SCH (08:26)
[2017-04-09] MEDS: SMZ/TMP 800/160MG TABLET. PO SCH ×2 (08:30→21:00)
[2017-04-09] MEDS: METHYLPHENIDATE HCL 5 MG TABLET PO SCH ×2 (08:30→21:00)
[2017-04-09] MEDS: CARBIDOPA/LEVODOPA 25/100MG TABLET PO SCH ×3 (08:30→20:59)
[2017-04-09] MEDS: CETIRIZINE HCL 10 MG TABLET. PO SCH (08:30)
[2017-04-09] MEDS: LEVOTHYROXINE 75 MCG TABLET PO SCH (08:31)
[2017-04-09] MEDS: PRAMIPEXOLE 0.25 MG TABLET. PO SCH ×2 (08:31→21:00)
[2017-04-09] MEDS: PROPRANOLOL 10 MG TABLET. PO SCH (08:31)
[2017-04-09] MEDS: ASPIRIN CHEWABLE 81 MG TABLET. PO SCH (08:32)
[2017-04-09] MEDS: FERROUS SULFATE ORAL 300 MG/5 ML SOLUTION. PO SCH ×2 (08:34→17:00)
[2017-04-09] MEDS: NAPROXEN 250 MG TABLET PO SCH ×2 (08:35→20:59)
[2017-04-09 09:32] LABS: BASO % 1 % (0-3); EOS % 3 % (0-3); HEMATOCRIT 29.4 % (36.0-47.0); HEMOGLOBIN 9.7 g/dL (12.0-15.5); LYMPH # 0.9 x10^3/uL (1.0-4.8); LYMPH % 12 % (24-48); MEAN CORPUSCULAR HEMOGLOBIN 29 pg (25-35); MEAN CORPUSCULAR HGB CONC 33 g/dL (31-37); MEAN CORPUSCULAR VOLUME 89 fL (79-100); MONO % 8 % (0-9); NEUT % 76 % (31-73); PLATELET COUNT 236 x10^3/uL (140-400); RED BLOOD COUNT 3.29 x10^6/uL (3.50-5.40); RED CELL DISTRIBUTION WIDTH 13.7 % (11.5-14.5); WHITE BLOOD COUNT 7.8 x10^3/uL (4.0-11.0)
[2017-04-09] MEDS ORDERED: BARIUM SULFATE 40% (APPLE) 148 GM PWD. PO ONE (13:15)
[2017-04-09] MEDS ORDERED: FLU VACC QS2017-18 (36MOS+)/PF 0.5 ML SYRINGE. VAX IM ONE (14:00)
--- NOTE | 2017-04-09 14:36 | RAD ---
Video dysphasia study, 04/09/2017: History: Dysphasia The swallowing mechanism was examined fluoroscopically in the lateral projection while the patient ingested a variety of food materials mixed with barium. 2.1 minutes of fluoroscopy time was utilized. One fluoroscopic video loop was recorded by a member of the speech Department. The oral phase of swallowing was delayed, particularly with the thicker materials. When ingesting the thin liquids there was good pharyngeal peristalsis with only minimal transient laryngeal penetration. No betsy aspiration occurred. With the honey thickened material and the pureed material there was no significant laryngeal penetration or aspiration. There was very little vallecular residue following swallowing. IMPRESSION: No current evidence of aspiration.
[2017-04-09] MEDS: traZODone 50 MG TABLET. PO SCH (21:01)
[2017-04-10 03:02] VITALS: BP 88/48
[2017-04-10 05:25] LABS: CALCIUM 8.6 mg/dL (8.5-10.1); CREATININE 0.4 mg/dL (0.6-1.0); GFR 200.5; POTASSIUM 3.5 mmol/L (3.5-5.1)
[2017-04-10 07:10] VITALS: BP 105/66
--- NOTE | 2017-04-10 08:49 | PDOC ---
GENERAL General: vss and afebrile. awake and alert. voices no complaints. morganella on urine culture and resistant to levaquin and will change to rocephin. exam stable. improved since admit despite resistance of organism to levaquin so must be at least partially sensitive. Problems: VITAL SIGNS Vital Signs: Vital Signs Date Time Temp Pulse Resp B/P (MAP) Pulse Ox O2 Delivery O2 Flow Rate FiO2 04/10/17 07:10 97.5 67 18 105/66 (79) 99 Room Air 97.5 ALLERGIES Allergies: Allergies Coded Allergies Type Severity Reaction Last Updated Verified No Known Drug Allergies 09/26/16 No MEDS Medications: Current Medications Medications (Trade) Dose Ordered Sig/Shana Start Time Stop Time Status Last Admin Dose Admin Acetaminophen (Tylenol) 650 mg PRN Q4HRS PRN 04/07/17 08:45 04/08/17 17:57 650 MG Al Hydroxide/Mg Hydroxide (Mylanta Plus Xs) 10 ml PRN Q4HRS PRN 04/07/17 09:15 Amlodipine Besylate (Norvasc) 5 mg DAILY 04/07/17 09:00 Aspirin (Children'S Aspirin) 81 mg DAILY 04/07/17 09:00 04/09/17 08:32 81 MG Atropine Sulfate (Isopto Atropine) 1 drop PRN Q8HRS PRN 04/07/17 09:30 Barium Sulfate (Varibar Thin Liquid Apple) 148 gm 1X ONCE 04/09/17 13:15 04/09/17 13:16 DC 04/09/17 14:25 148 GM Carbidopa/Levodopa (Sinemet 25/100) 2 tab TID 04/07/17 09:00 04/09/17 20:59 2 TAB Cetirizine HCl (ZyrTEC) 10 mg DAILY 04/07/17 10:00 04/09/17 08:30 10 MG Duloxetine HCl (Cymbalta) 60 mg DAILY 04/07/17 10:00 04/08/17 08:49 60 MG Ferrous Sulfate 300 mg BIDWMEALS 04/08/17 17:00 04/09/17 08:34 300 MG Ferrous Sulfate (Feosol) 325 mg BID 04/07/17 09:00 04/08/17 09:48 DC 04/08/17 08:50 325 MG Influenza Virus Vaccine Quadrival (Fluarix Quad [id number] Syringe) 0.5 ml ONCE ONCE 04/09/17 14:00 04/09/17 14:01 DC 04/09/17 14:49 0.5 ML Levetiracetam (Keppra) 1,000 mg BID 04/08/17 21:00 04/09/17 21:01 1,000 MG Levofloxacin/ Dextrose 150 ml @ 100 mls/hr QHS 04/07/17 21:00 04/09/17 20:59 100 MLS/HR Levothyroxine Sodium (Synthroid) 75 mcg DAILY 04/07/17 09:00 04/09/17 08:31 75 MCG Lubiprostone (Amitiza) 8 mcg Q3DAYS 04/07/17 09:00 04/07/17 11:49 8 MCG Methylphenidate HCl (Ritalin) 5 mg BID 04/07/17 09:00 04/09/17 21:00 5 MG Naproxen (Naprosyn) 375 mg BID 04/07/17 09:15 04/09/17 20:59 375 MG Ondansetron HCl (Zofran Odt) 4 mg PRN Q8HRS PRN 04/07/17 09:30 Ondansetron HCl (Zofran) 4 mg PRN Q8HRS PRN 04/06/17 23:45 04/07/17 23:44 DC Piperacillin Sod/ Tazobactam Sod 4.5 gm/Sodium Chloride 100 ml @ 200 mls/hr 1X ONCE 04/06/17 22:30 04/06/17 22:59 DC 04/06/17 22:21 200 MLS/HR Pramipexole Dihydrochloride (miraPEX) 0.125 mg BID 04/07/17 09:00 04/09/17 21:00 0.125 MG Propranolol HCl (Inderal) 10 mg DAILY 04/07/17 09:00 04/09/17 08:31 10 MG Sodium Chloride 1,000 ml @ 100 mls/hr Q10H 04/07/17 21:30 04/09/17 14:46 100 MLS/HR Trazodone HCl (Desyrel) 50 mg QHS 04/08/17 21:00 04/09/17 21:01 50 MG Trimethoprim/ Sulfamethoxazole (Bactrim Ds) 1 tab BID 04/07/17 09:00 04/09/17 21:00 1 TAB LAB Lab: Laboratory Tests Test 04/09/17 09:12 04/10/17 04:55 White Blood Count 7.8 x10^3/uL (4.0-11.0) Red Blood Count 3.29 x10^6/uL (3.50-5.40) Hemoglobin 9.7 g/dL (12.0-15.5) Hematocrit 29.4 % (36.0-47.0) Mean Corpuscular Volume 89 fL (79-100) Mean Corpuscular Hemoglobin 29 pg (25-35) Mean Corpuscular Hemoglobin Concent 33 g/dL (31-37) Red Cell Distribution Width 13.7 % (11.5-14.5) Platelet Count 236 x10^3/uL (140-400) Neutrophils (%) (Auto) 76 % (31-73) Lymphocytes (%) (Auto) 12 % (24-48) Monocytes (%) (Auto) 8 % (0-9) Eosinophils (%) (Auto) 3 % (0-3) Basophils (%) (Auto) 1 % (0-3) Neutrophils # (Auto) 5.9 x10^3uL (1.8-7.7) Lymphocytes # (Auto) 0.9 x10^3/uL (1.0-4.8) Monocytes # (Auto) 0.6 x10^3/uL (0.0-1.1) Eosinophils # (Auto) 0.3 x10^3/uL (0.0-0.7) Basophils # (Auto) 0.0 x10^3/uL (0.0-0.2) Sodium Level 142 mmol/L (136-145) Potassium Level 3.5 mmol/L (3.5-5.1) Chloride Level 105 mmol/L (98-107) Carbon Dioxide Level 28 mmol/L (21-32) Anion Gap 9 (6-14) Blood Urea Nitrogen 4 mg/dL (7-20) Creatinine 0.4 mg/dL (0.6-1.0) Estimated GFR (Cockcroft-Gault) 200.5 Glucose Level 103 mg/dL (70-99) Calcium Level 8.6 mg/dL (8.5-10.1) PAUL ROCHA MD Apr 10, 2017 08:49
[2017-04-10] MEDS: IV 1/2 NORMAL SALINE 1,000 ML IV SCH ×2 (09:01→21:21)
[2017-04-10] MEDS: FERROUS SULFATE ORAL 300 MG/5 ML SOLUTION. PO SCH ×2 (09:06→17:37)
[2017-04-10] MEDS: PROPRANOLOL 10 MG TABLET. PO SCH (09:12)
[2017-04-10] MEDS: DULoxetine HCL 30 MG CAPSULE.DR PO SCH (09:13)
[2017-04-10] MEDS: CETIRIZINE HCL 10 MG TABLET. PO SCH (09:13)
[2017-04-10] MEDS: METHYLPHENIDATE HCL 5 MG TABLET PO SCH ×2 (09:13→21:21)
[2017-04-10] MEDS: PRAMIPEXOLE 0.25 MG TABLET. PO SCH ×2 (09:14→21:24)
[2017-04-10] MEDS: SMZ/TMP 800/160MG TABLET. PO SCH (09:14)
[2017-04-10] MEDS: amLODIPine BESYLATE 5 MG TABLET PO SCH (09:15)
[2017-04-10] MEDS: LUBIPROSTONE 8 MCG CAPSULE PO SCH (09:15)
[2017-04-10] MEDS: LEVOTHYROXINE 75 MCG TABLET PO SCH (09:16)
[2017-04-10] MEDS: ASPIRIN CHEWABLE 81 MG TABLET. PO SCH (09:16)
[2017-04-10] MEDS: NAPROXEN 250 MG TABLET PO SCH ×2 (09:16→21:24)
[2017-04-10] MEDS: CARBIDOPA/LEVODOPA 25/100MG TABLET PO SCH ×3 (09:17→21:21)
[2017-04-10 11:00] VITALS: BP 104/60
[2017-04-10 15:08] VITALS: BP 106/62
[2017-04-10 19:46] VITALS: BP 89/57
[2017-04-10] MEDS: traZODone 50 MG TABLET. PO SCH (21:24)
[2017-04-10 21:59] VITALS: BP 98/60
[2017-04-11 02:50] VITALS: BP 100/65
[2017-04-11] MEDS: IV 1/2 NORMAL SALINE 1,000 ML IV SCH ×2 (05:30→15:28)
[2017-04-11 07:00] VITALS: BP 98/69
[2017-04-11] MEDS: FERROUS SULFATE ORAL 300 MG/5 ML SOLUTION. PO SCH ×2 (08:00→17:42)
--- NOTE | 2017-04-11 08:23 | PDOC ---
GENERAL General: vss and afebrile. awake and alert. feeling better. chest clear, heart regular, and abdomen benign. will dc back to detention on augmentin after today's dose rocephin. Problems: VITAL SIGNS Vital Signs: Vital Signs Date Time Temp Pulse Resp B/P (MAP) Pulse Ox O2 Delivery O2 Flow Rate FiO2 04/11/17 08:00 Room Air 04/11/17 07:00 98.9 68 18 98/69 (79) 97 98.9 ALLERGIES Allergies: Allergies Coded Allergies Type Severity Reaction Last Updated Verified No Known Drug Allergies 09/26/16 No MEDS Medications: Current Medications Medications (Trade) Dose Ordered Sig/Shana Start Time Stop Time Status Last Admin Dose Admin Acetaminophen (Tylenol) 650 mg PRN Q4HRS PRN 04/07/17 08:45 04/08/17 17:57 650 MG Al Hydroxide/Mg Hydroxide (Mylanta Plus Xs) 10 ml PRN Q4HRS PRN 04/07/17 09:15 Amlodipine Besylate (Norvasc) 5 mg DAILY 04/07/17 09:00 04/10/17 09:15 5 MG Aspirin (Children'S Aspirin) 81 mg DAILY 04/07/17 09:00 04/10/17 09:16 81 MG Atropine Sulfate (Isopto Atropine) 1 drop PRN Q8HRS PRN 04/07/17 09:30 Barium Sulfate (Varibar Thin Liquid Apple) 148 gm 1X ONCE 04/09/17 13:15 04/09/17 13:16 DC 04/09/17 14:25 148 GM Carbidopa/Levodopa (Sinemet 25/100) 2 tab TID 04/07/17 09:00 04/10/17 21:21 2 TAB Ceftriaxone Sodium 1 gm/ Sodium Chloride 50 ml @ 100 mls/hr Q24H 04/10/17 10:00 04/10/17 09:02 100 MLS/HR Cetirizine HCl (ZyrTEC) 10 mg DAILY 04/07/17 10:00 04/10/17 09:13 10 MG Duloxetine HCl (Cymbalta) 60 mg DAILY 04/07/17 10:00 04/10/17 09:13 60 MG Ferrous Sulfate 300 mg BIDWMEALS 04/08/17 17:00 04/10/17 17:37 300 MG Ferrous Sulfate (Feosol) 325 mg BID 04/07/17 09:00 04/08/17 09:48 DC 04/08/17 08:50 325 MG Influenza Virus Vaccine Quadrival (Fluarix Quad [id number] Syringe) 0.5 ml ONCE ONCE 04/09/17 14:00 04/09/17 14:01 DC 04/09/17 14:49 0.5 ML Levetiracetam (Keppra) 1,000 mg BID 04/08/17 21:00 04/10/17 21:21 1,000 MG Levofloxacin/ Dextrose 150 ml @ 100 mls/hr QHS 04/07/17 21:00 04/10/17 08:51 DC 04/09/17 20:59 100 MLS/HR Levothyroxine Sodium (Synthroid) 75 mcg DAILY 04/07/17 09:00 04/10/17 09:16 75 MCG Lubiprostone (Amitiza) 8 mcg Q3DAYS 04/07/17 09:00 04/10/17 09:15 8 MCG Methylphenidate HCl (Ritalin) 5 mg BID 04/07/17 09:00 04/10/17 21:21 5 MG Naproxen (Naprosyn) 375 mg BID 04/07/17 09:15 04/10/17 21:24 375 MG Ondansetron HCl (Zofran Odt) 4 mg PRN Q8HRS PRN 04/07/17 09:30 Ondansetron HCl (Zofran) 4 mg PRN Q8HRS PRN 04/06/17 23:45 04/07/17 23:44 DC Piperacillin Sod/ Tazobactam Sod 4.5 gm/Sodium Chloride 100 ml @ 200 mls/hr 1X ONCE 04/06/17 22:30 04/06/17 22:59 DC 04/06/17 22:21 200 MLS/HR Pramipexole Dihydrochloride (miraPEX) 0.125 mg BID 04/07/17 09:00 04/10/17 21:24 0.125 MG Propranolol HCl (Inderal) 10 mg DAILY 04/07/17 09:00 04/10/17 09:12 10 MG Sodium Chloride 1,000 ml @ 100 mls/hr Q10H 04/07/17 21:30 04/11/17 05:30 100 MLS/HR Trazodone HCl (Desyrel) 50 mg QHS 04/08/17 21:00 04/10/17 21:24 50 MG Trimethoprim/ Sulfamethoxazole (Bactrim Ds) 1 tab BID 04/07/17 09:00 04/10/17 13:58 DC 04/10/17 09:14 1 TAB APPL,PAUL Dunaway MD Apr 11, 2017 08:23
[2017-04-11] MEDS: DULoxetine HCL 30 MG CAPSULE.DR PO SCH (09:00)
[2017-04-11] MEDS: LEVOTHYROXINE 75 MCG TABLET PO SCH (09:00)
[2017-04-11] MEDS: PROPRANOLOL 10 MG TABLET. PO SCH (09:00)
[2017-04-11] MEDS: CARBIDOPA/LEVODOPA 25/100MG TABLET PO SCH ×3 (09:00→20:53)
[2017-04-11] MEDS: CETIRIZINE HCL 10 MG TABLET. PO SCH (09:00)
[2017-04-11] MEDS: NAPROXEN 250 MG TABLET PO SCH ×2 (09:00→20:54)
[2017-04-11] MEDS: ASPIRIN CHEWABLE 81 MG TABLET. PO SCH (09:00)
[2017-04-11] MEDS: PRAMIPEXOLE 0.25 MG TABLET. PO SCH ×2 (09:00→20:53)
[2017-04-11] MEDS: amLODIPine BESYLATE 5 MG TABLET PO SCH (09:00)
[2017-04-11] MEDS: METHYLPHENIDATE HCL 5 MG TABLET PO SCH ×2 (09:00→20:53)
[2017-04-11 11:00] VITALS: BP 99/64
[2017-04-11 12:56] LABS: BASO # 0.1 x10^3/uL (0.0-0.2); BASO % 1 % (0-3); EOS % 5 % (0-3); HEMATOCRIT 31.9 % (36.0-47.0); HEMOGLOBIN 10.5 g/dL (12.0-15.5); LYMPH # 1.4 x10^3/uL (1.0-4.8); LYMPH % 22 % (24-48); MEAN CORPUSCULAR HEMOGLOBIN 30 pg (25-35); MEAN CORPUSCULAR HGB CONC 33 g/dL (31-37); MEAN CORPUSCULAR VOLUME 89 fL (79-100); MONO % 6 % (0-9); NEUT % 67 % (31-73); PLATELET COUNT 314 x10^3/uL (140-400); RED BLOOD COUNT 3.56 x10^6/uL (3.50-5.40); RED CELL DISTRIBUTION WIDTH 13.9 % (11.5-14.5); WHITE BLOOD COUNT 6.6 x10^3/uL (4.0-11.0)
[2017-04-11 13:09] LABS: CREATININE 0.4 mg/dL (0.6-1.0); GFR 200.5; POTASSIUM 3.6 mmol/L (3.5-5.1)
[2017-04-11 13:11] LABS: ALBUMIN 2.3 g/dL (3.4-5.0); ALBUMIN/GLOBULIN RATIO 0.6 (1.0-1.7); TOTAL BILIRUBIN 0.2 mg/dL (0.2-1.0); TOTAL PROTEIN 6.4 g/dL (6.4-8.2)
[2017-04-11 15:00] VITALS: BP 98/58
--- NOTE | 2017-04-11 16:03 | RAD ---
CT of the head without contrast, 04/11/2017: History: Altered mental status The ventricles are within normal limits in size. There is no shift of the midline structures. There is no evidence of acute intracranial hemorrhage or mass effect. IMPRESSION: No acute intracranial abnormality is detected. PQRS Compliance Statement: One or more of the following individualized dose reduction techniques were utilized for this examination: 1. Automated exposure control 2. Adjustment of the mA and/or kV according to patient size 3. Use of iterative reconstruction technique
[2017-04-11 19:49] VITALS: BP 71/40
[2017-04-11] MEDS: traZODone 50 MG TABLET. PO SCH (20:54)
[2017-04-11 23:53] VITALS: BP 96/54
[2017-04-12] MEDS: IV 1/2 NORMAL SALINE 1,000 ML IV SCH ×3 (02:15→20:38)
[2017-04-12 03:20] VITALS: BP 82/52
[2017-04-12 07:00] VITALS: BP 101/64
[2017-04-12] MEDS: FERROUS SULFATE ORAL 300 MG/5 ML SOLUTION. PO SCH ×2 (08:00→12:51)
[2017-04-12] MEDS: ASPIRIN CHEWABLE 81 MG TABLET. PO SCH (09:00)
[2017-04-12] MEDS: amLODIPine BESYLATE 5 MG TABLET PO SCH (09:00)
[2017-04-12] MEDS: CARBIDOPA/LEVODOPA 25/100MG TABLET PO SCH ×3 (09:00→20:37)
[2017-04-12] MEDS: NAPROXEN 250 MG TABLET PO SCH ×2 (09:00→20:36)
[2017-04-12] MEDS: METHYLPHENIDATE HCL 5 MG TABLET PO SCH ×2 (09:00→20:36)
[2017-04-12] MEDS: PROPRANOLOL 10 MG TABLET. PO SCH (09:00)
[2017-04-12] MEDS: DULoxetine HCL 30 MG CAPSULE.DR PO SCH (09:00)
[2017-04-12] MEDS: PRAMIPEXOLE 0.25 MG TABLET. PO SCH ×2 (09:00→20:36)
[2017-04-12] MEDS: LEVOTHYROXINE 75 MCG TABLET PO SCH (09:00)
[2017-04-12] MEDS: CETIRIZINE HCL 10 MG TABLET. PO SCH (09:00)
--- NOTE | 2017-04-12 09:22 | PDOC ---
Provider Note Provider Note sleepy, bp low ,last norvasc 04/11- on rocep re uti, change to po amox, dc [facility]- still on iv fluid- no sedatives AGNES BARRIOS MD Apr 12, 2017 09:22
[2017-04-12 11:00] VITALS: BP 108/66
[2017-04-12] MEDS: AMOXICILLIN 250 MG CAPSULE. PO SCH ×2 (11:46→20:36)
--- NOTE | 2017-04-12 14:24 | PDOC2 ---
NEUROLOGY CONSULT Date of Admission Date of Admission DATE: 04/12/17 TIME: 14:15 Reason for Consult Reason for Consult: Altered mental status Referring Physician Referring Physician: Dr. Richardson Source Source: Chart review, Patient History of Present Illness History of Present Illness The patient is a 56-year-old female admitted here 4 days ago after presenting from the skilled nursing with altered mental status. She was found to have a urinary tract infection. The patient has a history of stroke and Parkinson's. According to nursing, the last 2 nights, patient has been up all night, and then she is very sleepy and lethargic during the day. No seizure activity has been observed; I note that she is on levetiracetam but there is no diagnosis of seizure in the chart. I left a message with Ms. Watson, the patient's closest relative, but I have been unable to talk to her yet. Past Medical History Cardiovascular: HTN CENTRAL NERVOUS SYSTEM: Other (Parkinson's) Psych: Anxiety, Depression Renal/: Urinary Incontinence Endocrine: Hypothyroidism Past Surgical History Past Surgical History: No pertinent history Family History Family History: No pertinent hx (unobtainable) Social History Social History correction resident Current Medications Current Medications Current Medications Sodium Chloride 1,000 ml @ 1,000 mls/hr Q1H IV Last administered on 04/07/17 09:40; Start 04/06/17 at 22:30; Stop 04/07/17 at 00:33; Status DC Piperacillin Sod/ Tazobactam Sod 4.5 gm/Sodium Chloride 100 ml @ 200 mls/hr 1X ONCE IV Last administered on 04/06/17 22:21; Start 04/06/17 at 22:30; Stop 04/06/17 at 22:59; Status DC Levofloxacin/ Dextrose 150 ml @ 100 mls/hr 1X ONCE IV Last administered on 23:41; Start 04/06/17 at 23:00; Stop 04/07/17 at 00:29; Status DC Acetaminophen (Tylenol) 500 mg 1X ONCE PO Last administered on 04/06/17 23:40 ; Start 04/06/17 at 23:30; Stop 04/06/17 at 23:31; Status DC Ondansetron HCl (Zofran) 4 mg PRN Q8HRS PRN IV NAUSEA/VOMITING; Start 04/06/17 at 23:45; Stop 04/07/17 at 23:44; Status DC Levofloxacin/ Dextrose 150 ml @ 100 mls/hr QHS IV Last administered on 20:59; Start 04/07/17 at 21:00; Stop 04/10/17 at 08:51; Status DC Sodium Chloride 1,000 ml @ 150 mls/hr 1X ONCE IV Last administered on 00:00; Start 04/07/17 at 00:00; Stop 04/07/17 at 06:39; Status DC Acetaminophen (Tylenol) 650 mg PRN Q4HRS PRN PO PAIN Last administered on 17:57; Start 04/07/17 at 08:45 Amlodipine Besylate (Norvasc) 5 mg DAILY PO Last administered on 04/10/17 09: 15; Start 04/07/17 at 09:00; Stop 04/12/17 at 09:18; Status DC Aspirin (Children'S Aspirin) 81 mg DAILY PO Last administered on 04/10/17 09: 16; Start 04/07/17 at 09:00 Carbidopa/Levodopa (Sinemet 25/100) 2 tab TID PO Last administered on 20:53; Start 04/07/17 at 09:00 Ferrous Sulfate (Feosol) 325 mg BID PO Last administered on 04/08/17 08:50; Start 04/07/17 at 09:00; Stop 04/08/17 at 09:48; Status DC Levetiracetam (Keppra) 1,000 mg BID PO Last administered on 04/08/17 08:49; Start 04/07/17 at 09:00; Stop 04/08/17 at 09:49; Status DC Levothyroxine Sodium (Synthroid) 75 mcg DAILY PO Last administered on 09:16; Start 04/07/17 at 09:00 Lubiprostone (Amitiza) 8 mcg Q3DAYS PO Last administered on 04/10/17 09:15; Start 04/07/17 at 09:00 Methylphenidate HCl (Ritalin) 5 mg BID PO Last administered on 04/11/17 20:53 ; Start 04/07/17 at 09:00 Pramipexole Dihydrochloride (miraPEX) 0.125 mg BID PO Last administered on 04/11 20:53; Start 04/07/17 at 09:00 Propranolol HCl (Inderal) 10 mg DAILY PO Last administered on 04/10/17 09:12; Start 04/07/17 at 09:00 Trimethoprim/ Sulfamethoxazole (Bactrim Ds) 1 tab BID PO Last administered on 09:14; Start 04/07/17 at 09:00; Stop 04/10/17 at 13:58; Status DC Trazodone HCl (Desyrel) 50 mg DAILY PO Last administered on 04/07/17 11:57; Start 04/07/17 at 09:00; Stop 04/08/17 at 09:50; Status DC Atropine Sulfate (Isopto Atropine) 1 drop PRN Q8HRS PRN SL SECRETIONS; Start at 09:30 Duloxetine HCl (Cymbalta) 60 mg DAILY PO Last administered on 04/10/17 09:13; Start 04/07/17 at 10:00 Cetirizine HCl (ZyrTEC) 10 mg DAILY PO Last administered on 04/10/17 09:13; Start 04/07/17 at 10:00; Stop 04/12/17 at 09:18; Status DC Al Hydroxide/Mg Hydroxide (Mylanta Plus Xs) 10 ml PRN Q4HRS PRN PO HEARTBURN / GAS; Start 04/07/17 at 09:15 Naproxen (Naprosyn) 375 mg BID PO Last administered on 04/11/17 20:54; Start 04/07/17 at 09:15 Ondansetron HCl (Zofran Odt) 4 mg PRN Q8HRS PRN PO NAUSEA; Start 04/07/17 at 09 :30 Sodium Chloride 1,000 ml @ 100 mls/hr Q10H IV Last administered on 04/12/17 11:48; Start 04/07/17 at 21:30 Ferrous Sulfate 300 mg BIDWMEALS PO Last administered on 04/11/17 17:42; Start 04/08/17 at 17:00 Levetiracetam (Keppra) 1,000 mg BID PEG Last administered on 9/22/17at 20:54; Start 04/08/17 at 21:00 Trazodone HCl (Desyrel) 50 mg QHS PO Last administered on 04/11/17 20:54; Start 04/08/17 at 21:00 Barium Sulfate (Varibar Thin Liquid Apple) 148 gm 1X ONCE PO Last administered on 04/09/17 14:25; Start 04/09/17 at 13:15; Stop 04/09/17 at 13:16 ; Status DC Influenza Virus Vaccine Quadrival (Fluarix Quad [id number] Syringe) 0.5 ml ONCE ONCE VAX IM Last administered on 04/09/17 14:49; Start 04/09/17 at 14:00; Stop 04/09/17 at 14:01; Status DC Ceftriaxone Sodium 1 gm/ Sodium Chloride 50 ml @ 100 mls/hr Q24H IV Last administered on 04/12/17 08:02; Start 04/10/17 at 10:00; Stop 04/12/17 at 09:19 ; Status DC Amoxicillin (Amoxil) 250 mg KBU325 PO ; Start 04/12/17 at 14:00 Active Scripts Active Reported Fluconazole 200 Mg Tablet 1 Tab PO DAILY 14 Days Trazodone Hcl 50 Mg Tablet 50 Mg PO DAILY Sinemet 25-100 Mg Tablet (Carbidopa/Levodopa) 1 Each Tablet 2 Tab PO TID Ritalin (Methylphenidate Hcl) 5 Mg Tablet 1 Tab PO BID Propranolol Hcl 10 Mg Tablet 1 Tab PO DAILY Ondansetron Hcl 4 Mg Tablet 1 Tab PO PRN Q8HRS PRN Naproxen 375 Mg Tablet 1 Tab PO Q8HRS Alum-Mag Hydroxide-Simeth Liq (Mag Hydrox/Al Hydrox/Simeth) 360 Ml Oral.susp 10 Ml PO Q4HRS PRN Mirapex (Pramipexole Di-Hcl) 0.25 Mg Tablet 0.5 Tab PO BID Levothyroxine Sodium 75 Mcg Tablet 1 Tab PO DAILY Levetiracetam 500 Mg Tablet 2 Tab PO BID Ferrous Sulfate 325 Mg Tablet 1 Tab PO BID Cymbalta (Duloxetine Hcl) 60 Mg Capsule.dr 1 Cap PO DAILY Claritin (Loratadine) 10 Mg Tablet 1 Tab PO DAILY Bactrim Ds Tablet (Sulfamethoxazole/Trimethoprim) 1 Each Tablet 1 Tab PO BID 10 Days Atropine 0.01%-Ns Eye Drops (Atropine Sulfate in 0.9% NaCl) 10 Ml Drops 1 Drop SL Q8HRS PRN Aspirin 81 Mg Tab.chew 1 Tab PO DAILY Amlodipine Besylate 5 Mg Tablet 5 Mg PO DAILY Amitiza (Lubiprostone) 8 Mcg Capsule 1 Cap PO Q3DAYS Tylenol (Acetaminophen) 325 Mg Tablet 2 Tab PO PRN Q4HRS PRN Allergies Allergies: Coded Allergies: No Known Drug Allergies (Unverified , 09/26/16) ROS Review of System Unobtainable Physical Exam Physical Examination PHYSICAL EXAMINATION: Vital signs: see above. General appearance is normal and in no acute distress. HEENT: Normocephalic and nontraumatic. Eyes, nose, ears, and throat are unremarkable. Neck is supple. No lymphadenopathy. No bruits are heard over the carotid artery. No crepitus. NEUROLOGIC: Eyes are closed, she squeezes them shut when I try to examine them. There is no facial asymmetry. Reflexes are 0-1+. Tone is really more gegenhalten rather than parkinsonian. I see no tremor. There are bilateral grasp reflexes. She does not cooperate with motor, sensory, or cerebellar examinations. Vitals VITALS Vital Signs Date Time Temp Pulse Resp B/P (MAP) Pulse Ox O2 Delivery O2 Flow Rate FiO2 04/12/17 11:00 97.7 69 18 108/66 (80) 98 Room Air 97.7 Labs Labs Laboratory Tests Test 04/11/17 12:45 White Blood Count 6.6 x10^3/uL (4.0-11.0) Red Blood Count 3.56 x10^6/uL (3.50-5.40) Hemoglobin 10.5 g/dL (12.0-15.5) Hematocrit 31.9 % (36.0-47.0) Mean Corpuscular Volume 89 fL (79-100) Mean Corpuscular Hemoglobin 30 pg (25-35) Mean Corpuscular Hemoglobin Concent 33 g/dL (31-37) Red Cell Distribution Width 13.9 % (11.5-14.5) Platelet Count 314 x10^3/uL (140-400) Neutrophils (%) (Auto) 67 % (31-73) Lymphocytes (%) (Auto) 22 % (24-48) Monocytes (%) (Auto) 6 % (0-9) Eosinophils (%) (Auto) 5 % (0-3) Basophils (%) (Auto) 1 % (0-3) Neutrophils # (Auto) 4.4 x10^3uL (1.8-7.7) Lymphocytes # (Auto) 1.4 x10^3/uL (1.0-4.8) Monocytes # (Auto) 0.4 x10^3/uL (0.0-1.1) Eosinophils # (Auto) 0.3 x10^3/uL (0.0-0.7) Basophils # (Auto) 0.1 x10^3/uL (0.0-0.2) Sodium Level 144 mmol/L (136-145) Potassium Level 3.6 mmol/L (3.5-5.1) Chloride Level 108 mmol/L (98-107) Carbon Dioxide Level 33 mmol/L (21-32) Anion Gap 3 (6-14) Blood Urea Nitrogen 3 mg/dL (7-20) Creatinine 0.4 mg/dL (0.6-1.0) Estimated GFR (Cockcroft-Gault) 200.5 BUN/Creatinine Ratio 8 (6-20) Glucose Level 91 mg/dL (70-99) Calcium Level 9.0 mg/dL (8.5-10.1) Total Bilirubin 0.2 mg/dL (0.2-1.0) Aspartate Amino Transf (AST/SGOT) 22 U/L (15-37) Alanine Aminotransferase (ALT/SGPT) 13 U/L (14-59) Alkaline Phosphatase 65 U/L (46-116) Total Protein 6.4 g/dL (6.4-8.2) Albumin 2.3 g/dL (3.4-5.0) Albumin/Globulin Ratio 0.6 (1.0-1.7) Images Images CT of the head without contrast, 04/11/2017: History: Altered mental status The ventricles are within normal limits in size. There is no shift of the midline structures. There is no evidence of acute intracranial hemorrhage or mass effect. IMPRESSION: No acute intracranial abnormality is detected. Assessment/Plan Assessment/Plan Impression: Encephalopathy, most likely a [id number] disturbance in a patient with Parkinson's disease, history of stroke, and apparently a history of seizures not listed in the chart. Recommendations: Trial of low-dose Seroquel at bedtime Electroencephalogram on 04/14 Consider additional studies including MRI or lumbar puncture, depending on her course, but hold off for now. I will attempt to get further history on this patient, and again left a message with Ms. Watson, her closest relative. Thank you for letting me help with the patient's care. APOLONIA OBANDO MD Apr 12, 2017 14:24
[2017-04-12 15:00] VITALS: BP 95/64
[2017-04-12] MEDS ORDERED: DEXTROSE 50% 25 GM / 50ML DISP.SYRIN. IV PRN (19:15)
[2017-04-12 19:35] VITALS: BP 124/72
[2017-04-12] MEDS: QUEtiapine 25 MG TABLET. PO SCH (20:36)
[2017-04-12] MEDS: traZODone 50 MG TABLET. PO SCH (20:37)
[2017-04-12 23:35] VITALS: BP 99/60
[2017-04-13] VITALS (7 sets, daily range): BP systolic 82–123; BP diastolic 43–77
[2017-04-13] MEDS: FERROUS SULFATE ORAL 300 MG/5 ML SOLUTION. PO SCH (07:43)
[2017-04-13] MEDS: DULoxetine HCL 30 MG CAPSULE.DR PO SCH (07:43)
[2017-04-13] MEDS: LUBIPROSTONE 8 MCG CAPSULE PO SCH ×2 (07:43→08:50)
[2017-04-13] MEDS: AMOXICILLIN 250 MG CAPSULE. PO SCH ×3 (07:43→21:43)
[2017-04-13] MEDS: NAPROXEN 250 MG TABLET PO SCH ×2 (07:44→21:41)
[2017-04-13] MEDS: LEVOTHYROXINE 75 MCG TABLET PO SCH (07:44)
[2017-04-13] MEDS: CARBIDOPA/LEVODOPA 25/100MG TABLET PO SCH ×3 (07:44→21:42)
[2017-04-13] MEDS: PROPRANOLOL 10 MG TABLET. PO SCH (07:45)
[2017-04-13] MEDS: PRAMIPEXOLE 0.25 MG TABLET. PO SCH ×2 (07:45→21:43)
[2017-04-13] MEDS: ASPIRIN CHEWABLE 81 MG TABLET. PO SCH (07:45)
[2017-04-13] MEDS: METHYLPHENIDATE HCL 5 MG TABLET PO SCH ×2 (07:45→21:41)
[2017-04-13] MEDS: IV 1/2 NORMAL SALINE 1,000 ML IV SCH (07:46)
--- NOTE | 2017-04-13 08:27 | PDOC ---
Provider Note Provider Note bp beter off norvasc, vss, no temp- will increase amitiza re constipation, dc fluids- more alert now, likely dc in am if stable AGNES BARRIOS MD Apr 13, 2017 08:27
--- NOTE | 2017-04-13 13:32 | PDOC ---
PROGRESS NOTES Assessment Problems Medical Problems: (1) SIRS (systemic inflammatory response syndrome) Status: Acute (2) Urinary retention Status: Acute (3) UTI (urinary tract infection) Status: Acute Encephalopathy, [id number] disturbance in a patient with Parkinson's disease, history of stroke, and history of seizures Discussed with Ms. Watson, patient has Parkinson's, dementia, epilepsy, history of stroke all diagnosed in [place]. Patient recently moved here, but would like to move back to [place]. Also Ms. 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 Plan Hold on electroencephalogram, given improvement Hold on additional studies including MRI or lumbar puncture Okay for discharge Subjective none Objective Vital Signs Date Time Temp Pulse Resp B/P (MAP) Pulse Ox O2 Delivery O2 Flow Rate FiO2 04/13/17 10:39 97.7 73 16 117/77 (90) 96 Room Air 97.7 PHYSICAL EXAM Much more alert, being fed lunch, but nonverbal and doesn't follow commands PERRL. EOMI. CN: no focal findings. Muscle tone: increased, cogwheel type Muscle strength: 2-3/5 DTR: 1+ Plantar reflex: flexor Gait: not examined in bed. Sensory exam: no abnormal findings. No cerebellar signs elicited. Review of Relevant I have reviewed the following items apollo (where applicable) has been applied. Labs Laboratory Tests Test 04/12/17 19:02 04/12/17 19:45 Glucose (Fingerstick) 58 mg/dL (70-99) 148 mg/dL (70-99) Laboratory Tests Test 04/12/17 19:02 04/12/17 19:45 Glucose (Fingerstick) 58 mg/dL (70-99) 148 mg/dL (70-99) Microbiology 04/06/17 Blood Culture - Final, Complete NO GROWTH AFTER 5 DAYS 04/06/17 Urine Culture - Final, Complete 04/06/17 Urine Culture Result 1 (SANDRA) - Final, Complete 04/06/17 Antimicrobic Susceptibility - Final, Complete Medications Current Medications Sodium Chloride 1,000 ml @ 1,000 mls/hr Q1H IV Last administered on 04/07/17t 09:40; Start 04/06/17 at 22:30; Stop 04/07/17 at 00:33; Status DC Piperacillin Sod/ Tazobactam Sod 4.5 gm/Sodium Chloride 100 ml @ 200 mls/hr 1X ONCE IV Last administered on 04/06/17 22:21; Start 04/06/17 at 22:30; Stop 04/06/17 at 22:59; Status DC Levofloxacin/ Dextrose 150 ml @ 100 mls/hr 1X ONCE IV Last administered on 23:41; Start 04/06/17 at 23:00; Stop 04/07/17 at 00:29; Status DC Acetaminophen (Tylenol) 500 mg 1X ONCE PO Last administered on 04/06/17 23:40 ; Start 04/06/17 at 23:30; Stop 04/06/17 at 23:31; Status DC Ondansetron HCl (Zofran) 4 mg PRN Q8HRS PRN IV NAUSEA/VOMITING; Start 04/06/17 at 23:45; Stop 04/07/17 at 23:44; Status DC Levofloxacin/ Dextrose 150 ml @ 100 mls/hr QHS IV Last administered on 20:59; Start 04/07/17 at 21:00; Stop 04/10/17 at 08:51; Status DC Sodium Chloride 1,000 ml @ 150 mls/hr 1X ONCE IV Last administered on 00:00; Start 04/07/17 at 00:00; Stop 04/07/17 at 06:39; Status DC Acetaminophen (Tylenol) 650 mg PRN Q4HRS PRN PO PAIN Last administered on 17:57; Start 04/07/17 at 08:45 Amlodipine Besylate (Norvasc) 5 mg DAILY PO Last administered on 04/10/17 09: 15; Start 04/07/17 at 09:00; Stop 04/12/17 at 09:18; Status DC Aspirin (Children'S Aspirin) 81 mg DAILY PO Last administered on 04/13/17 07: 45; Start 04/07/17 at 09:00 Carbidopa/Levodopa (Sinemet 25/100) 2 tab TID PO Last administered on 12:13; Start 04/07/17 at 09:00 Ferrous Sulfate (Feosol) 325 mg BID PO Last administered on 04/08/17 08:50; Start 04/07/17 at 09:00; Stop 04/08/17 at 09:48; Status DC Levetiracetam (Keppra) 1,000 mg BID PO Last administered on 04/08/17 08:49; Start 04/07/17 at 09:00; Stop 04/08/17 at 09:49; Status DC Levothyroxine Sodium (Synthroid) 75 mcg DAILY PO Last administered on 07:44; Start 04/07/17 at 09:00 Lubiprostone (Amitiza) 8 mcg Q3DAYS PO Last administered on 04/13/17 07:43; Start 04/07/17 at 09:00; Stop 04/13/17 at 08:26; Status DC Methylphenidate HCl (Ritalin) 5 mg BID PO Last administered on 04/13/17 07:45 ; Start 04/07/17 at 09:00 Pramipexole Dihydrochloride (miraPEX) 0.125 mg BID PO Last administered on 04/13 07:45; Start 04/07/17 at 09:00 Propranolol HCl (Inderal) 10 mg DAILY PO Last administered on 04/13/17 07:45; Start 04/07/17 at 09:00 Trimethoprim/ Sulfamethoxazole (Bactrim Ds) 1 tab BID PO Last administered on 09:14; Start 04/07/17 at 09:00; Stop 04/10/17 at 13:58; Status DC Trazodone HCl (Desyrel) 50 mg DAILY PO Last administered on 04/07/17 11:57; Start 04/07/17 at 09:00; Stop 04/08/17 at 09:50; Status DC Atropine Sulfate (Isopto Atropine) 1 drop PRN Q8HRS PRN SL SECRETIONS; Start at 09:30 Duloxetine HCl (Cymbalta) 60 mg DAILY PO Last administered on 04/13/17 07:43; Start 04/07/17 at 10:00 Cetirizine HCl (ZyrTEC) 10 mg DAILY PO Last administered on 04/10/17 09:13; Start 04/07/17 at 10:00; Stop 04/12/17 at 09:18; Status DC Al Hydroxide/Mg Hydroxide (Mylanta Plus Xs) 10 ml PRN Q4HRS PRN PO HEARTBURN / GAS; Start 04/07/17 at 09:15 Naproxen (Naprosyn) 375 mg BID PO Last administered on 04/13/17 07:44; Start 04/07/17 at 09:15 Ondansetron HCl (Zofran Odt) 4 mg PRN Q8HRS PRN PO NAUSEA; Start 04/07/17 at 09 :30 Sodium Chloride 1,000 ml @ 100 mls/hr Q10H IV Last administered on 04/13/17 07:46; Start 04/07/17 at 21:30; Stop 04/13/17 at 08:26; Status DC Ferrous Sulfate 300 mg BIDWMEALS PO Last administered on 04/13/17 07:43; Start 04/08/17 at 17:00; Stop 04/13/17 at 08:28; Status DC Levetiracetam (Keppra) 1,000 mg BID PEG Last administered on 04/13/17 07:43; Start 04/08/17 at 21:00 Trazodone HCl (Desyrel) 50 mg QHS PO Last administered on 04/12/17 20:37; Start 04/08/17 at 21:00 Barium Sulfate (Varibar Thin Liquid Apple) 148 gm 1X ONCE PO Last administered on 04/09/17 14:25; Start 04/09/17 at 13:15; Stop 04/09/17 at 13:16 ; Status DC Influenza Virus Vaccine Quadrival (Fluarix Quad [id number] Syringe) 0.5 ml ONCE ONCE VAX IM Last administered on 04/09/17 14:49; Start 04/09/17 at 14:00; Stop 04/09/17 at 14:01; Status DC Ceftriaxone Sodium 1 gm/ Sodium Chloride 50 ml @ 100 mls/hr Q24H IV Last administered on 04/12/17 08:02; Start 04/10/17 at 10:00; Stop 04/12/17 at 09:19 ; Status DC Amoxicillin (Amoxil) 250 mg [id number] PO Last administered on 04/13/17 12:13; Start 04/12/17 at 14:00 Quetiapine Fumarate (SEROquel) 25 mg QHS PO Last administered on 04/12/17 20: 36; Start 04/12/17 at 21:00 Dextrose (Dextrose 50%-Water Syringe) 12.5 gm PRN Q15MIN PRN IV SEE COMMENTS Last administered on 04/12/17 19:10; Start 04/12/17 at 19:15 Lubiprostone (Amitiza) 8 mcg DAILY08 PO ; Start 04/13/17 at 09:00 Ferrous Sulfate 300 mg DAILYAC PO ; Start 04/14/17 at 07:30 Active Scripts Active Reported Fluconazole 200 Mg Tablet 1 Tab PO DAILY 14 Days Trazodone Hcl 50 Mg Tablet 50 Mg PO DAILY Sinemet 25-100 Mg Tablet (Carbidopa/Levodopa) 1 Each Tablet 2 Tab PO TID Ritalin (Methylphenidate Hcl) 5 Mg Tablet 1 Tab PO BID Propranolol Hcl 10 Mg Tablet 1 Tab PO DAILY Ondansetron Hcl 4 Mg Tablet 1 Tab PO PRN Q8HRS PRN Naproxen 375 Mg Tablet 1 Tab PO Q8HRS Alum-Mag Hydroxide-Simeth Liq (Mag Hydrox/Al Hydrox/Simeth) 360 Ml Oral.susp 10 Ml PO Q4HRS PRN Mirapex (Pramipexole Di-Hcl) 0.25 Mg Tablet 0.5 Tab PO BID Levothyroxine Sodium 75 Mcg Tablet 1 Tab PO DAILY Levetiracetam 500 Mg Tablet 2 Tab PO BID Ferrous Sulfate 325 Mg Tablet 1 Tab PO BID Cymbalta (Duloxetine Hcl) 60 Mg Capsule.dr 1 Cap PO DAILY Claritin (Loratadine) 10 Mg Tablet 1 Tab PO DAILY Bactrim Ds Tablet (Sulfamethoxazole/Trimethoprim) 1 Each Tablet 1 Tab PO BID 10 Days Atropine 0.01%-Ns Eye Drops (Atropine Sulfate in 0.9% NaCl) 10 Ml Drops 1 Drop SL Q8HRS PRN Aspirin 81 Mg Tab.chew 1 Tab PO DAILY Amlodipine Besylate 5 Mg Tablet 5 Mg PO DAILY Amitiza (Lubiprostone) 8 Mcg Capsule 1 Cap PO Q3DAYS Tylenol (Acetaminophen) 325 Mg Tablet 2 Tab PO PRN Q4HRS PRN Vitals/I & O Vital Sign - Last 24 Hours 04/12/17 04/12/17 04/12/17 04/12/17 15:00 19:35 20:00 23:35 Temp 97.8 98.4 97.5 97.8 98.4 97.5 Pulse 61 72 66 Resp 18 18 16 B/P (MAP) 95/64 (74) 124/72 (89) 99/60 (73) Pulse Ox 91 96 98 O2 Delivery Room Air Room Air Room Air Room Air 04/13/17 04/13/17 04/13/17 04/13/17 03:21 07:37 07:45 08:00 Temp 98.0 97.7 98.0 97.7 Pulse 60 76 76 Resp 16 14 B/P (MAP) 96/59 (71) 123/74 (90) 123/74 Pulse Ox 96 96 O2 Delivery Room Air Room Air Room Air 04/13/17 10:39 Temp 97.7 97.7 Pulse 73 Resp 16 B/P (MAP) 117/77 (90) Pulse Ox 96 O2 Delivery Room Air APOLONIA OBANDO MD Apr 13, 2017 13:32
[2017-04-13] MEDS: QUEtiapine 25 MG TABLET. PO SCH (21:43)
[2017-04-13] MEDS: traZODone 50 MG TABLET. PO SCH (21:43)
[2017-04-14 03:00] VITALS: BP 101/48
[2017-04-14 06:56] VITALS: BP 90/46
[2017-04-14] MEDS ORDERED: FERROUS SULFATE ORAL 300 MG/5 ML SOLUTION. PO SCH (07:30)
[2017-04-14] MEDS: LUBIPROSTONE 8 MCG CAPSULE PO SCH (08:00)
--- NOTE | 2017-04-14 08:21 | PDOC ---
GENERAL General: vss and afebrile. awake and alert this am. chest clear, heart regular, abdomen benign. back to detention today. see orders and dc summary. Problems: VITAL SIGNS Vital Signs: Vital Signs Date Time Temp Pulse Resp B/P (MAP) Pulse Ox O2 Delivery O2 Flow Rate FiO2 04/14/17 06:56 97.7 66 18 90/46 (61) 95 Room Air 97.7 ALLERGIES Allergies: Allergies Coded Allergies Type Severity Reaction Last Updated Verified No Known Drug Allergies 09/26/16 No MEDS Medications: Current Medications Medications (Trade) Dose Ordered Sig/Shana Start Time Stop Time Status Last Admin Dose Admin Acetaminophen (Tylenol) 650 mg PRN Q4HRS PRN 04/07/17 08:45 04/08/17 17:57 650 MG Al Hydroxide/Mg Hydroxide (Mylanta Plus Xs) 10 ml PRN Q4HRS PRN 04/07/17 09:15 Amlodipine Besylate (Norvasc) 5 mg DAILY 04/07/17 09:00 04/12/17 09:18 DC 04/10/17 09:15 5 MG Amoxicillin (Amoxil) 250 mg [id number] 04/12/17 14:00 04/13/17 21:43 250 MG Aspirin (Children'S Aspirin) 81 mg DAILY 04/07/17 09:00 04/13/17 07:45 81 MG Atropine Sulfate (Isopto Atropine) 1 drop PRN Q8HRS PRN 04/07/17 09:30 Barium Sulfate (Varibar Thin Liquid Apple) 148 gm 1X ONCE 04/09/17 13:15 04/09/17 13:16 DC 04/09/17 14:25 148 GM Carbidopa/Levodopa (Sinemet 25/100) 2 tab TID 04/07/17 09:00 04/13/17 21:42 2 TAB Ceftriaxone Sodium 1 gm/ Sodium Chloride 50 ml @ 100 mls/hr Q24H 04/10/17 10:00 04/12/17 09:19 DC 04/12/17 08:02 100 MLS/HR Cetirizine HCl (ZyrTEC) 10 mg DAILY 04/07/17 10:00 04/12/17 09:18 DC 04/10/17 09:13 10 MG Dextrose (Dextrose 50%-Water Syringe) 12.5 gm PRN Q15MIN PRN 04/12/17 19:15 04/12/17 19:10 12.5 GM Duloxetine HCl (Cymbalta) 60 mg DAILY 04/07/17 10:00 04/13/17 07:43 60 MG Ferrous Sulfate 300 mg DAILYAC 04/14/17 07:30 Ferrous Sulfate (Feosol) 325 mg BID 04/07/17 09:00 04/08/17 09:48 DC 04/08/17 08:50 325 MG Influenza Virus Vaccine Quadrival (Fluarix Quad [id number] Syringe) 0.5 ml ONCE ONCE 04/09/17 14:00 04/09/17 14:01 DC 04/09/17 14:49 0.5 ML Levetiracetam (Keppra) 1,000 mg BID 04/08/17 21:00 04/13/17 21:44 1,000 MG Levofloxacin/ Dextrose 150 ml @ 100 mls/hr QHS 04/07/17 21:00 04/10/17 08:51 DC 04/09/17 20:59 100 MLS/HR Levothyroxine Sodium (Synthroid) 75 mcg DAILY 04/07/17 09:00 04/13/17 07:44 75 MCG Lubiprostone (Amitiza) 8 mcg DAILY08 04/13/17 09:00 Methylphenidate HCl (Ritalin) 5 mg BID 04/07/17 09:00 04/13/17 21:41 5 MG Naproxen (Naprosyn) 375 mg BID 04/07/17 09:15 04/13/17 21:41 375 MG Ondansetron HCl (Zofran Odt) 4 mg PRN Q8HRS PRN 04/07/17 09:30 Ondansetron HCl (Zofran) 4 mg PRN Q8HRS PRN 04/06/17 23:45 04/07/17 23:44 DC Piperacillin Sod/ Tazobactam Sod 4.5 gm/Sodium Chloride 100 ml @ 200 mls/hr 1X ONCE 04/06/17 22:30 04/06/17 22:59 DC 04/06/17 22:21 200 MLS/HR Pramipexole Dihydrochloride (miraPEX) 0.125 mg BID 04/07/17 09:00 04/13/17 21:43 0.125 MG Propranolol HCl (Inderal) 10 mg DAILY 04/07/17 09:00 04/13/17 07:45 10 MG Quetiapine Fumarate (SEROquel) 25 mg QHS 04/12/17 21:00 04/13/17 21:43 25 MG Sodium Chloride 1,000 ml @ 100 mls/hr Q10H 04/07/17 21:30 04/13/17 08:26 DC 04/13/17 07:46 100 MLS/HR Trazodone HCl (Desyrel) 50 mg QHS 04/08/17 21:00 04/13/17 21:43 50 MG Trimethoprim/ Sulfamethoxazole (Bactrim Ds) 1 tab BID 04/07/17 09:00 04/10/17 13:58 DC 04/10/17 09:14 1 TAB APPLPAUL MD Apr 14, 2017 08:21
[2017-04-14] MEDS: DULoxetine HCL 30 MG CAPSULE.DR PO SCH (09:00)
[2017-04-14] MEDS: PROPRANOLOL 10 MG TABLET. PO SCH (09:00)
[2017-04-14] MEDS: NAPROXEN 250 MG TABLET PO SCH (09:45)
[2017-04-14] MEDS: CARBIDOPA/LEVODOPA 25/100MG TABLET PO SCH (09:46)
[2017-04-14] MEDS: METHYLPHENIDATE HCL 5 MG TABLET PO SCH (09:46)
[2017-04-14] MEDS: AMOXICILLIN 250 MG CAPSULE. PO SCH (09:47)
[2017-04-14] MEDS: ASPIRIN CHEWABLE 81 MG TABLET. PO SCH (09:48)
[2017-04-14] MEDS: PRAMIPEXOLE 0.25 MG TABLET. PO SCH (09:49)
[2017-04-14 10:47] VITALS: BP 103/65
[2017-04-14] MEDS: LEVOTHYROXINE 75 MCG TABLET PO SCH (12:19)
--- NOTE | 2017-04-14 15:15 | PDOC ---
PROGRESS NOTES Assessment Assessment IMPRESSION: Sepsis UTI. Metabolic encephalopathy. PD Seizure Behavior problems. Sleep-wake cycle disturbance. Cognitive impairment. Hx of stroke. RECOMMENDATIONS/PLAN: Continue Keppra 1000 mg bid, may decrease to 750 mg bid if sleepiness. Treat medical diseases. FU with PCP. OT/PT Past Medical History Cardiovascular: HTN CENTRAL NERVOUS SYSTEM: Other (Parkinson's) Psych: Anxiety, Depression Renal/: Urinary Incontinence Endocrine: Hypothyroidism Past Surgical History No pertinent history Family History No pertinent hx (unobtainable) Social History residential resident ALLERGY: Reviewed. MEDICATIONS: Refer to [facility] REVIEW OF SYSTEMS: Constitutional: No malnutrition, cachexia. Head: No traumatic brain or head injury. Skin: No edema, or rash. Ear: No infection. Eyes: No vision loss, or diplopia. Nose: No bleeding or purulent discharges. Hearing: No hearing decrease. Neck: No injury. Breast: No history of cancer, masses, or discharges. Cardiac: No RI, arrhythmia Pulmonary: No COPD. GI: No GI Ulcer, GI bleeding Urinary/genital: UTI. Endocrine: No cousin face, craniofacial dysmorphism, polydactyly. Skeletomuscular: generalized weakness. Neurological: see HP. Psychiatric: Denies drug use/abuse. Otherwise, not [id number] review of systems. PHYSICAL EXAMINATION: General appearance in no acute distress. HEENT: Normocephalic and nontraumatic. Eyes, nose, ears, and throat are unremarkable. Hearing decrease. Neck is supple. No lymphadenopathy. No bruits are heard over the carotid artery. No Crepitus. Cardiovascular: S1, S2, regular rate and rhythm. Pulmonary: Clear to auscultation bilaterally. Abdomen: Bowel sounds are positive. Extremities: No rash, lesions, or edema. No restriction of range of motion NEUROLOGICAL EXAMINATION: Awake. Not fully oriented to time, place but knows person. PERRL. EOMI. CN: no focal findings. Muscle tone: fluctuated. Muscle strength: 4 DTR: 2- Plantar reflex: Neutral response bilaterally Gait: not examined in bed. Sensory exam: no acute abnormal findings. No acute cerebellar signs elicited. Objective Objective Vital Signs Date Time Temp Pulse Resp B/P (MAP) Pulse Ox O2 Delivery O2 Flow Rate FiO2 04/14/17 10:47 97.5 57 18 103/65 (78) 99 Room Air 97.5 Vitals Signs Vitals VS - Last 72 Hours, by Label Date Time Temp Pulse Resp B/P (MAP) Pulse Ox O2 Delivery O2 Flow Rate FiO2 04/14/17 10:47 97.5 57 18 103/65 (78) 99 Room Air 97.5 04/14/17 08:00 Room Air 04/14/17 06:56 97.7 66 18 90/46 (61) 95 Room Air 97.7 04/14/17 03:00 98.0 62 18 101/48 (65) 94 Room Air 98.0 04/13/17 23:54 70 94/53 (67) 04/13/17 23:00 97.7 75 17 82/43 (56) 100 Room Air 97.7 04/13/17 20:00 Room Air 04/13/17 19:00 98.0 73 19 94/56 (69) 93 Room Air 98.0 04/13/17 14:44 98.4 73 14 100/64 (76) 96 Room Air 98.4 04/13/17 10:39 97.7 73 16 117/77 (90) 96 Room Air 97.7 04/13/17 08:00 Room Air 04/13/17 07:45 76 123/74 04/13/17 07:37 97.7 76 14 123/74 (90) 96 Room Air 97.7 Laboratory Laboratory Microbiology 04/06/17 Blood Culture - Final, Complete NO GROWTH AFTER 5 DAYS 04/06/17 Urine Culture - Final, Complete 04/06/17 Urine Culture Result 1 (SANDRA) - Final, Complete 04/06/17 Antimicrobic Susceptibility - Final, Complete Medication Medications Current Medications Ferrous Sulfate 300 mg DAILYAC PO Last administered on 04/14/17t 09:56; Start 04/14/17 at 07:30 Comment Review of Relevant I have reviewed the following items apollo (where applicable) has been applied. ELMO DIAZ MD Apr 14, 2017 15:15
== END 2017-04-14 14:30 | disposition home or self-care (01) | DRG 871 ==
LOC: ER 21:47 → 6 SOUTH 04-07 00:12
PROVIDERS: ADMIT Family Medicine; ATTEND Family Medicine
DX: A41.9 Sepsis, unspecified organism (principal); G93.41 Metabolic encephalopathy; G20 Parkinson's disease; F03.90 Unspecified dementia, unspecified severity, without behavioral disturbance, psychotic disturbance, mood disturbance, and anxiety; N39.0 Urinary tract infection, site not specified; E03.9 Hypothyroidism, unspecified; G40.909 Epilepsy, unspecified, not intractable, without status epilepticus; G47.9 Sleep disorder, unspecified; I10 Essential (primary) hypertension; F32.9 Major depressive disorder, single episode, unspecified; F41.9 Anxiety disorder, unspecified; Z86.73 Personal history of transient ischemic attack (TIA), and cerebral infarction without residual deficits
CPT/HCPCS: 36415; 51702; 70450; 71010; 74000; 74230; 80048; 80053; 81001; 82962; 83605; 83690; 84484; 85025; 85610; 85730; 87040; 87086; 87186; 87641; 90686; 93005; 96365; 96367; J0696; J1956; J2543; J7030; J7042; 92526; 92610; 92611; 97110; 97530; 97535; 99285-25